=== PATIENT | male | born 1945 | race Caucasian/White ===

== ENCOUNTER 2017-10-14 12:01 | Inpatient (IN) | payer MEDICARE ==
[2017-10-14 13:19] LABS: BASO # 0.1 K/uL (0.0-0.2); BASO % 0.9 % (0.0-2.0); EOS # 0.1 K/uL (0.0-0.7); EOS % 0.9 % (0.0-4.0); HEMOGLOBIN 11.5 g/dL (12.0-18.0); LYMPH # 1.1 K/uL (1.0-4.3); LYMPH % 9.7 % (20.0-40.0); MEAN CELL VOLUME 81.1 fL (80.0-94.0); MEAN CORPUSCULAR HEMOGLOBIN 26.9 pg (27.0-31.0); MEAN CORPUSCULAR HGB CONC 33.2 g/dL (33.0-37.0); MEAN PLATELET VOLUME 10.1 fL (7.2-11.7); MONO # 0.9 K/uL (0.0-0.8); MONO % 8.4 % (0.0-10.0); NEUT % 80.1 % (50.0-75.0); PLATELET COUNT 267 K/uL (130-400); RBC 4.28 Mil/uL (4.40-5.90); RED CELL DISTRIBUTION WIDTH 16.5 % (11.5-14.5); WHITE BLOOD COUNT 11.2 K/uL (4.8-10.8)
--- NOTE | 2017-10-14 13:19 | C.PDOC ---
History Of Present Illness 72 y/o male with PMHx of HTN and DM presents to ED with complaints of dysuria for "last few days"and bilateral flank pain. Patient denies fever, chills, abdominal pain, nausea, vomiting or any other complaints at this time. Time Seen by Provider: 10/14/17 12:58 Chief Complaint (Nursing): Male Genitourinary History Per: Patient History/Exam Limitations: no limitations Onset/Duration Of Symptoms: Days Past Medical History Reviewed: Historical Data, Nursing Documentation, Vital Signs Vital Signs: Last Vital Signs Temp 97.7 F 10/14/17 12:11 Pulse 75 10/14/17 17:31 Resp 20 10/14/17 17:31 BP 158/43 H 10/14/17 17:31 Pulse Ox 100 10/14/17 17:31 - Medical History PMH: COPD, HTN Surgical History: No Surg Hx Family History: States: No Known Family Hx - Social History Hx Alcohol Use: Yes Hx Substance Use: No - Immunization History Hx Tetanus Toxoid Vaccination: No Hx Influenza Vaccination: Yes Hx Pneumococcal Vaccination: Yes Review Of Systems Constitutional: Negative for: Fever, Chills Gastrointestinal: Negative for: Nausea, Vomiting Genitourinary: Positive for: Dysuria Musculoskeletal: Positive for: Other (flank pain). Negative for: Back Pain Skin: Negative for: Rash Neurological: Negative for: Weakness, Numbness Physical Exam - Physical Exam Appears: Non-toxic, No Acute Distress Skin: Normal Color, Warm, Dry, No Rash Head: Atraumatic, Normacephalic Oral Mucosa: Moist Neck: Normal ROM, Supple Cardiovascular: Rhythm Regular Respiratory: Normal Breath Sounds, No Rales, No Rhonchi, No Wheezing Gastrointestinal/Abdominal: Tenderness (Suprapubic), No Guarding, No Rebound, Other (bilateral flank tenderness) Back: No CVA Tenderness Extremity: Normal ROM, Capillary Refill (<2 seconds) Neurological/Psych: Oriented x3 ED Course And Treatment - Laboratory Results Result Diagrams: 10/14/17 13:15 10/14/17 14:05 ECG: Interpreted By Me, Viewed By Me ECG Rhythm: Sinus Rhythm, R BBB Rate From EC (BPM) O2 Sat by Pulse Oximetry: 96 (RA) Pulse Ox Interpretation: Normal Disposition - Disposition Disposition: HOSPITALIZED Disposition Time: 17:47 Condition: STABLE - Clinical Impression Clinical Impression: Acute renal failure, Obstructive uropathy - Scribe Statement The provider has reviewed the documentation as recorded by the Dashaibjose angel Hilliard All medical record entries made by the Kole were at my direction and personally dictated by me. I have reviewed the chart and agree that the record accurately reflects my personal performance of the history, physical exam, medical decision making, and the department course for this patient. I have also personally directed, reviewed, and agree with the discharge instructions and disposition.
[2017-10-14 13:29] LABS: INR 1.2; PROTHROMBIN TIME 13.7 SECONDS (9.7-12.2)
[2017-10-14 13:35] LABS: ANISOCYTOSIS SLIGHT; BASOPHIL 2 % (0-2); HYPOCHROMIC SLIGHT; LYMPHOCYTE 10 % (20-40); MONOCYTE 8 % (0-10); NEUTROPHIL 80 % (50-75); PLATELET ESTIMATE NORMAL (NORMAL); POIKILOCYTOSIS SLIGHT; TOTAL CELLS COUNTED 100
[2017-10-14 13:43] LABS: ALB/GLOB RATIO 0.9 (1.0-2.1); ALBUMIN 3.8 g/dL (3.5-5.0); CALCIUM 8.2 mg/dl (8.6-10.4)
[2017-10-14 13:58] LABS: SQUAMOUS EPITHIAL 11 /hpf (0-5); URINE BACTERIA FEW (<OCC); URINE BILIRUBIN NEGATIVE (NEGATIVE); URINE BLOOD 3+ (NEGATIVE); URINE CLARITY Turbid (Clear); URINE COLOR Amber (YELLOW); URINE GLUCOSE (UA) NORMAL (Normal); URINE LEUKOCYTE ESTERASE 2+ Leu/uL (Negative); URINE NITRATE NEGATIVE (NEGATIVE); URINE PROTEIN 1+ mg/dL (NEGATIVE); URINE UROBILINOGEN NORMAL mg/dL (0.2-1.0)
--- NOTE | 2017-10-14 14:45 | CT ---
PROCEDURE: CT Abdomen and Pelvis without intravenous contrast HISTORY: flank pain COMPARISON: None. TECHNIQUE: Technique. Contrast Dose: Radiation dose: Total exam DLP = 1464 mGy-cm. This CT exam was performed using one or more of the following dose reduction techniques: Automated exposure control, adjustment of the mA and/or kV according to patient size, and/or use of iterative reconstruction technique. FINDINGS: LOWER THORAX: Left pleural effusion. Left perifissural bronchiectasis with joss bronchiectatic thickening surrounding inflammatory changes -contiguous the left lateral pleural surfaces. Small pericardial effusion LIVER: Prominent left hepatic lobe wrapping around the spleen. GALLBLADDER AND BILE DUCTS: Unremarkable. PANCREAS: No mass. Mostly fatty infiltration. No gross lesion or ductal dilatation. SPLEEN: Unremarkable. ADRENALS: Unremarkable. No mass. KIDNEYS AND URETERS: Bilateral hydronephrosis. Intra and extra renal pelviectasis greater than peripheral caliectasis. A bilateral ureteropelvic junction obstruction left greater than right is suspect. No obstructing calculus appreciated. Markedly distended bladder also inferred contributory to the bilateral hydronephrosis . The calculi present appear bilaterally vascular related. Left perirenal fluid ; left perirenal fat inflammatory and fluid changes -contiguous/ blending the left psoas margin. Midpole right renal cortical hypodensity/ nonspecific cystic appearing mass suggested VASCULATURE: Atherosclerotic vascular calcifications. No aortic aneurysm. BOWEL: Moderate stool retention. No obstruction. No gross mural thickening. Probable scattered diverticuli. No gross complicating diverticulitis APPENDIX: Unremarkable. Normal appendix. PERITONEUM: Unremarkable. No free fluid. No free air. LYMPH NODES: Unremarkable. No enlarged lymph nodes. BLADDER: Markedly distended bladder appear consistent with bladder outlet obstruction -likely contributing to the bilateral hydronephrosis is well. No intraluminal bladder mass is noted. The prostate moderately prominent measuring at least 5 cm REPRODUCTIVE: Enlarged prostate. Unremarkable seminal vesicles BONES: No acute fracture. Thoraco lumbar spondylosis with the endplate sclerotic changes, vacuum disc phenomena and tiny subchondral endplate cystic changes OTHER FINDINGS: Anterior abdominal wall postsurgical changes. Fat containing ventral hernia. No bowel containing hernia IMPRESSION: Markedly distended bladder measuring at least 20 cm cephalo caudal -bladder fundus up to the L3-4 disc space. Bladder outlet obstruction inferred- prostate enlarged. Bilateral hydronephrosis and hydro proximal ureters O concomitant obstructing ureteral calculi. Secondary bilateral hydronephrosis from the outlet obstruction compatible with this. An element of concomitant bilateral pelvic a ureteral junctional obstruction not excluded. Left perirenal inflammatory changes -contiguous with the left psoas margin Right midpole renal hypodense mass -nonspecific. Consider elective renal ultrasound follow-up Small pericardial effusion. Left lung base findings as above Comments: The bladder distension/bladder outlet obstruction and the secondary bilateral hydronephrosis - without obstructing calculus conveyed to the ER physician Dr. Ibarra 2:25 p.m. on 10/14/2017 =
[2017-10-14] MEDS: Sodium Chloride 0.9% 1,000 ML IV SCH (15:17)
[2017-10-14] MEDS ORDERED: Sodium Chloride 0.9% 1,000 ML ONE (15:21)
--- NOTE | 2017-10-14 15:40 | CP.PCM.HP ---
History of Present Illness - History of Present Illness History of Present Illness: 72 y/o male with PMHx of HTN and DM presents to ED with complaints of dysuria for "last few days"and bilateral flank pain. Patient denies fever, chills, abdominal pain, nausea, vomiting or any other complaints at this time. Masterson placed in ED drained over 2 L of urine. Patient has elevated creatinine and bilateral hydronephrosis Present on Admission - Present on Admission Any Indicators Present on Admission: No History of DVT/PE: No History of Uncontrolled Diabetes: No Urinary Catheter: No Decubitus Ulcer Present: No Review of Systems - Review of Systems All systems: reviewed and no additional remarkable complaints except (As mentioned in HPI) Past Patient History - Infectious Disease Hx of Infectious Diseases: None - Past Social History Smoking Status: Heavy Smoker > 10 Cigarettes Daily - CARDIAC Hx Hypertension: Yes - PULMONARY Hx Chronic Obstructive Pulmonary Disease (COPD): Yes - ENDOCRINE/METABOLIC Hx Diabetes Mellitus Type 1: Yes - PSYCHIATRIC Hx Substance Use: No - SURGICAL HISTORY Hx Surgeries: Yes Hx Amputation: Yes Hx Herniorrhaphy: Yes - ANESTHESIA Hx Anesthesia: Yes Hx Anesthesia Reactions: No Meds Allergies/Adverse Reactions: Allergies Allergy/AdvReac Type Severity Reaction Status Date / Time No Known Allergies Allergy Unverified 10/14/17 13:01 Physical Exam - Head Exam Head Exam: NORMAL INSPECTION - Eye Exam Eye Exam: Normal appearance - ENT Exam ENT Exam: Mucous Membranes Moist - Respiratory Exam Respiratory Exam: Clear to Auscultation Bilateral, NORMAL BREATHING PATTERN - Cardiovascular Exam Cardiovascular Exam: REGULAR RHYTHM, +S1, +S2 - GI/Abdominal Exam GI & Abdominal Exam: Normal Bowel Sounds, Soft - Extremities Exam Extremities exam: Positive for: normal inspection Results - Vital Signs Recent Vital Signs: Last Vital Signs Temp 97.7 F 10/14/17 12:11 Pulse 81 10/14/17 14:19 Resp 16 10/14/17 14:19 BP 126/70 10/14/17 14:19 Pulse Ox 96 10/14/17 14:38 - Labs Result Diagrams: 10/19/17 08:50 10/21/17 07:10 Labs: Laboratory Results - last 24 hr 10/14/17 10/14/17 10/14/17 13:15 13:15 13:15 WBC 11.2 H RBC 4.28 L Hgb 11.5 L Hct 34.7 L MCV 81.1 MCH 26.9 L MCHC 33.2 RDW 16.5 H Plt Count 267 MPV 10.1 Neut % (Auto) 80.1 H Lymph % (Auto) 9.7 L [place] % (Auto) 8.4 Eos % (Auto) 0.9 Baso % (Auto) 0.9 Neut # 9.0 H Lymph # 1.1 [place] # 0.9 H Eos # 0.1 Baso # 0.1 Neutrophils % (Manual) 80 H Lymphocytes % (Manual) 10 L Monocytes % (Manual) 8 Basophils % (Manual) 2 Platelet Estimate Normal Hypochromasia (manual) Slight Poikilocytosis (manual Slight Anisocytosis (manual) Slight PT 13.7 H INR 1.2 APTT 34 Sodium 128 L Potassium 6.0 H Chloride 97 L Carbon Dioxide 16 L Anion Gap 21 H BUN 113 H* Creatinine 9.2 H* Est GFR ( Amer) 7 Est GFR (Non-Af Amer) 6 Random Glucose 159 H Calcium 8.2 L Total Bilirubin 1.1 AST 58 ALT 49 Alkaline Phosphatase 80 Total Protein 8.0 Albumin 3.8 Globulin 4.1 H Albumin/Globulin Ratio 0.9 L Lipase 48 Urine Color Urine Clarity Urine pH Ur Specific [place] Urine Protein Urine Glucose (UA) Urine Ketones Urine Blood Urine Nitrate Urine Bilirubin Urine Urobilinogen Ur Leukocyte Esterase Urine WBC (Auto) Urine RBC (Auto) Ur Squamous Epith Cells Urine Bacteria Hyaline Casts 10/14/17 10/14/17 13:32 14:05 WBC RBC Hgb Hct MCV MCH MCHC RDW Plt Count MPV Neut % (Auto) Lymph % (Auto) [place] % (Auto) Eos % (Auto) Baso % (Auto) Neut # Lymph # [place] # Eos # Baso # Neutrophils % (Manual) Lymphocytes % (Manual) Monocytes % (Manual) Basophils % (Manual) Platelet Estimate Hypochromasia (manual) Poikilocytosis (manual Anisocytosis (manual) PT INR APTT Sodium Potassium 4.4 Chloride Carbon Dioxide Anion Gap BUN Creatinine Est GFR ( Amer) Est GFR (Non-Af Amer) Random Glucose Calcium Total Bilirubin AST ALT Alkaline Phosphatase Total Protein Albumin Globulin Albumin/Globulin Ratio Lipase Urine Color Gini Urine Clarity Turbid Urine pH 5.0 Ur Specific [place] 1.013 Urine Protein 1+ H Urine Glucose (UA) Normal Urine Ketones Negative Urine Blood 3+ H Urine Nitrate Negative Urine Bilirubin Negative Urine Urobilinogen Normal Ur Leukocyte Esterase 2+ H Urine WBC (Auto) 907 H Urine RBC (Auto) 287 H Ur Squamous Epith Cells 11 H Urine Bacteria Few H Hyaline Casts 6-10 H Assessment & Plan - Assessment and Plan (Free Text) Assessment: KIMBERLY with hydronephrosis Bladder Outlet obstruction COPD DM Possible BPH RBBB Nephrology consult Urology consult Follow creatinine's Start Flomax Monitor urine output Follow CBC Accucheck Insulin coverage Follow electrolytes DVT/GI prophalaxis
--- NOTE | 2017-10-14 16:45 | CP.PCM.CON ---
History of Present Illness - History of Present Illness History of Present Illness: Initial Nephrology Consultation: Assessment: Stable Acute Kidney Injury (N17.9) likely due to bladder outlet obstruction with b/l hydronephrosis Active smoker Hyponatremia, acidosis, anemia possible UTI Plan No acute need for renal replacement therapy at this time. anticipat renal recovery since obstruction relieved. Hypertension control with meds as ordered. No ACEI/ARB due to KIMBERLY Monitor Input/Output, daily weights and renal function with basic metabolic panel continue with IVF as ordered started flomax consider urology eval Dose meds/antibiotics for reduced GFR. Avoid fleets enema/magnesium based laxatives. Avoid nephrotoxins/NSAIDs/ iodinated contrast (unless needed emergently) Glycemic control Further work up/management as per primary team pt advised to stop smoking Thanks for allowing me to participate in care of your patient. Will follow patient with you. Please call if any Qs. d/w team and family Dr Kieran Espinosa Office: [phone] Chief Complaint; unable to urinate HPI: Pt is a 72 M without much medical hx but active smoker presented with complaints of unable to urinate for 1 week. he had nocturia prior to that but he denies other symptoms of LUTS he was found to have urine retention and womack catheter drained ~ 2 L urine soon after. Denies OTC/herbal meds or NSAIDs No recent iodinated contrast exposure. No obvious episodes of low BP. ROS: Cardiovascular: No chest pain. Pulmonary: No shortness of breath Gastrointestinal: denies abdominal pain No nausea. No vomiting. Genitourinary: unable to urinate. All other negative Physical Examination: General Appearance: Comfortable, in no acute respiratory distress, co-operative . Vitals reviewed and noted as below Head; Atraumatic, normocephalic ENT: no ulcers no thrush. Tongue is midline. Oropharynx: no rash or ulcers. EYES: Pupils are equal, round and reactive to light accommodation. Eye muscles and extraocular movement intact. Sclera is anicteric. Neck; supple no lymphadenopathy, no thyromegaly or bruit Lungs: Normal respiratory rate/effort. Breath sounds bilateral equal and clear Heart: Normal rate. s1s2 normal. No rub or gallop. Extremities: no edema. No varicose veins Neurological: Patient is alert, awake and oriented to person, place and time. No focal deficit. Strength bilateral appropriate and equal Skin: Warm and dry. Normal turgor. No rash. Palpitation: Normal elasticity for age Abdomen: Abdomen is soft. Bowel sounds +. There is no abdominal tenderness, no guarding/rigidity no organomegaly Psych: normal insight and normal affect/mood MSK: no joint tenderness or swelling. Digits and nails normal, no deformity : kidney or bladder not palpable. has womack. some blood at tip of penis + Labs/imaging reviewed. Past medical history, past surgical history, family history, social history, allergy reviewed and noted as below Family hx: no hx of CKD. Rest non-contributory Past Patient History - Infectious Disease Hx of Infectious Diseases: None - Past Social History Smoking Status: Heavy Smoker > 10 Cigarettes Daily - CARDIAC Hx Hypertension: Yes - PULMONARY Hx Chronic Obstructive Pulmonary Disease (COPD): Yes - ENDOCRINE/METABOLIC Hx Diabetes Mellitus Type 1: Yes - PSYCHIATRIC Hx Substance Use: No - SURGICAL HISTORY Hx Surgeries: Yes Hx Amputation: Yes Hx Herniorrhaphy: Yes - ANESTHESIA Hx Anesthesia: Yes Hx Anesthesia Reactions: No Meds Allergies/Adverse Reactions: Allergies Allergy/AdvReac Type Severity Reaction Status Date / Time No Known Allergies Allergy Unverified 10/14/17 13:01 - Medications Medications: Current Medications Sodium Chloride (Sodium Chloride 0.9%) 1,000 mls @ 100 mls/hr IV .Q10H [facility] Last Admin: 10/14/17 15:17 Dose: 100 mls/hr Tamsulosin HCl (Flomax) 0.4 mg PO DAILY [facility] Results - Vital Signs Recent Vital Signs: Last Vital Signs Temp 97.7 F 10/14/17 12:11 Pulse 81 10/14/17 14:19 Resp 16 10/14/17 14:19 BP 126/70 10/14/17 14:19 Pulse Ox 96 10/14/17 14:38 - Labs Result Diagrams: 10/14/17 13:15 10/14/17 14:05 Labs: Laboratory Results - last 24 hr 10/14/17 10/14/17 10/14/17 13:15 13:15 13:15 WBC 11.2 H RBC 4.28 L Hgb 11.5 L Hct 34.7 L MCV 81.1 MCH 26.9 L MCHC 33.2 RDW 16.5 H Plt Count 267 MPV 10.1 Neut % (Auto) 80.1 H Lymph % (Auto) 9.7 L [place] % (Auto) 8.4 Eos % (Auto) 0.9 Baso % (Auto) 0.9 Neut # 9.0 H Lymph # 1.1 [place] # 0.9 H Eos # 0.1 Baso # 0.1 Neutrophils % (Manual) 80 H Lymphocytes % (Manual) 10 L Monocytes % (Manual) 8 Basophils % (Manual) 2 Platelet Estimate Normal Hypochromasia (manual) Slight Poikilocytosis (manual Slight Anisocytosis (manual) Slight PT 13.7 H INR 1.2 APTT 34 Sodium 128 L Potassium 6.0 H Chloride 97 L Carbon Dioxide 16 L Anion Gap 21 H BUN 113 H* Creatinine 9.2 H* Est GFR ( Amer) 7 Est GFR (Non-Af Amer) 6 Random Glucose 159 H Calcium 8.2 L Total Bilirubin 1.1 AST 58 ALT 49 Alkaline Phosphatase 80 Total Protein 8.0 Albumin 3.8 Globulin 4.1 H Albumin/Globulin Ratio 0.9 L Lipase 48 Urine Color Urine Clarity Urine pH Ur Specific [place] Urine Protein Urine Glucose (UA) Urine Ketones Urine Blood Urine Nitrate Urine Bilirubin Urine Urobilinogen Ur Leukocyte Esterase Urine WBC (Auto) Urine RBC (Auto) Ur Squamous Epith Cells Urine Bacteria Hyaline Casts 10/14/17 10/14/17 13:32 14:05 WBC RBC Hgb Hct MCV MCH MCHC RDW Plt Count MPV Neut % (Auto) Lymph % (Auto) [place] % (Auto) Eos % (Auto) Baso % (Auto) Neut # Lymph # [place] # Eos # Baso # Neutrophils % (Manual) Lymphocytes % (Manual) Monocytes % (Manual) Basophils % (Manual) Platelet Estimate Hypochromasia (manual) Poikilocytosis (manual Anisocytosis (manual) PT INR APTT Sodium Potassium 4.4 Chloride Carbon Dioxide Anion Gap BUN Creatinine Est GFR ( Amer) Est GFR (Non-Af Amer) Random Glucose Calcium Total Bilirubin AST ALT Alkaline Phosphatase Total Protein Albumin Globulin Albumin/Globulin Ratio Lipase Urine Color Gini Urine Clarity Turbid Urine pH 5.0 Ur Specific [place] 1.013 Urine Protein 1+ H Urine Glucose (UA) Normal Urine Ketones Negative Urine Blood 3+ H Urine Nitrate Negative Urine Bilirubin Negative Urine Urobilinogen Normal Ur Leukocyte Esterase 2+ H Urine WBC (Auto) 907 H Urine RBC (Auto) 287 H Ur Squamous Epith Cells 11 H Urine Bacteria Few H Hyaline Casts 6-10 H
[2017-10-15] MEDS: Sodium Chloride 0.9% 1,000 ML IV SCH ×3 (01:02→21:31)
[2017-10-15] MEDS: (Novolog) Insulin Aspart, Recombinant 100 u/ml 10 ml vial SC SCH ×4 (08:22→21:32)
[2017-10-15 08:25] LABS: BASO # 0.1 K/uL (0.0-0.2); BASO % 0.7 % (0.0-2.0); EOS # 0.1 K/uL (0.0-0.7); HEMOGLOBIN 10.9 g/dL (12.0-18.0); LYMPH # 1.6 K/uL (1.0-4.3); LYMPH % 21.4 % (20.0-40.0); MEAN CELL VOLUME 80.9 fL (80.0-94.0); MEAN CORPUSCULAR HEMOGLOBIN 27.3 pg (27.0-31.0); MEAN CORPUSCULAR HGB CONC 33.7 g/dL (33.0-37.0); MEAN PLATELET VOLUME 9.8 fL (7.2-11.7); MONO # 0.7 K/uL (0.0-0.8); MONO % 9.8 % (0.0-10.0); NEUT # 4.9 K/uL (1.8-7.0); NEUT % 66.1 % (50.0-75.0); RBC 3.99 Mil/uL (4.40-5.90); RED CELL DISTRIBUTION WIDTH 16.4 % (11.5-14.5); WHITE BLOOD COUNT 7.3 K/uL (4.8-10.8)
[2017-10-15 09:09] LABS: CALCIUM 8.2 mg/dl (8.6-10.4); MAGNESIUM 2.5 mg/dL (1.6-2.3)
--- NOTE | 2017-10-15 11:54 | CP.PCM.PN ---
Subjective - Date & Time of Evaluation Date of Evaluation: 10/15/17 Time of Evaluation: 11:51 - Subjective Subjective: Patient embedded feeling much better appetite is good No nausea or vomiting Patient has Masterson catheter full of urine in bag tinged blood Objective - Vital Signs/Intake and Output Vital Signs (last 24 hours): Temp Pulse Resp BP Pulse Ox 97.7 F 76 20 150/74 95 10/15/17 07:15 10/15/17 07:15 10/15/17 07:15 10/15/17 07:15 10/14/17 23:35 Intake and Output: 10/15/17 10/15/17 06:59 18:59 Output Total 1850 Balance -1850 - Medications Medications: Current Medications Acetaminophen (Tylenol 325mg Tab) 650 mg PO Q6 PRN PRN Reason: Pain, moderate (4-7) Last Admin: 10/14/17 22:27 Dose: 650 mg Heparin Sodium (Porcine) (Heparin) 5,000 units SC Q8 [facility] Last Admin: 10/15/17 05:57 Dose: 5,000 units Sodium Chloride (Sodium Chloride 0.9%) 1,000 mls @ 100 mls/hr IV .Q10H [facility] Last Admin: 10/15/17 10:49 Dose: 100 mls/hr Insulin Aspart (Novolog) 0 unit SC ACHS [facility] PRN Reason: Protocol Last Admin: 10/15/17 08:22 Dose: 2 unit Tamsulosin HCl (Flomax) 0.4 mg PO DAILY [facility] Last Admin: 10/15/17 10:49 Dose: 0.4 mg - Labs Labs: 10/15/17 08:17 10/15/17 08:17 PT 13.7 SECONDS (9.7-12.2) H 10/14/17 13:15 INR 1.2 10/14/17 13:15 APTT 34 SECONDS (21-34) 10/14/17 13:15 - Constitutional Appears: No Acute Distress - ENT Exam ENT Exam: Mucous Membranes Moist - Neck Exam Neck Exam: absent: Lymphadenopathy - Respiratory Exam Respiratory Exam: NORMAL BREATHING PATTERN. absent: Chest Wall Tenderness, Rhonchi, Wheezes - Cardiovascular Exam Cardiovascular Exam: absent: Gallop, JVD, Rubs - GI/Abdominal Exam GI & Abdominal Exam: Soft, Normal Bowel Sounds. absent: Guarding - Extremities Exam Extremities Exam: absent: Calf Tenderness - Back Exam Back Exam: absent: CVA tenderness (L), CVA tenderness (R) - Neurological Exam Neurological Exam: Alert - Psychiatric Exam Psychiatric exam: Normal Affect - Skin Skin Exam: absent: Cyanosis Assessment and Plan (1) Acute renal failure Assessment & Plan: Patient has acute kidney injury from obstructive uropathy. Which has been improving serum creatinine coming down and patient making a lot of urine. #2 bilateral hydronephrosis Patient needs urology consult Continue monitoring electrolyte intake and output Serum phosphorus slightly elevated that would be corrected once his kidney function improving. Status: Acute (2) Obstructive uropathy Status: Acute
--- NOTE | 2017-10-15 12:04 | CP.PCM.PN ---
Subjective - Date & Time of Evaluation Date of Evaluation: 10/15/17 Time of Evaluation: 12:04 - Subjective Subjective: Patient seen and examined Improving creatinine Objective - Vital Signs/Intake and Output Vital Signs (last 24 hours): Temp Pulse Resp BP Pulse Ox 97.7 F 76 20 150/74 95 10/15/17 07:15 10/15/17 07:15 10/15/17 07:15 10/15/17 07:15 10/14/17 23:35 Intake and Output: 10/15/17 10/15/17 06:59 18:59 Output Total 1850 Balance -1850 - Medications Medications: Current Medications Acetaminophen (Tylenol 325mg Tab) 650 mg PO Q6 PRN PRN Reason: Pain, moderate (4-7) Last Admin: 10/14/17 22:27 Dose: 650 mg Heparin Sodium (Porcine) (Heparin) 5,000 units SC Q8 [facility] Last Admin: 10/15/17 05:57 Dose: 5,000 units Sodium Chloride (Sodium Chloride 0.9%) 1,000 mls @ 100 mls/hr IV .Q10H [facility] Last Admin: 10/15/17 10:49 Dose: 100 mls/hr Insulin Aspart (Novolog) 0 unit SC ACHS [facility] PRN Reason: Protocol Last Admin: 10/15/17 08:22 Dose: 2 unit Tamsulosin HCl (Flomax) 0.4 mg PO DAILY [facility] Last Admin: 10/15/17 10:49 Dose: 0.4 mg - Labs Labs: 10/15/17 08:17 10/15/17 08:17 PT 13.7 SECONDS (9.7-12.2) H 10/14/17 13:15 INR 1.2 10/14/17 13:15 APTT 34 SECONDS (21-34) 10/14/17 13:15 - Head Exam Head Exam: NORMAL INSPECTION - Eye Exam Eye Exam: Normal appearance - ENT Exam ENT Exam: Mucous Membranes Moist - Respiratory Exam Respiratory Exam: Clear to Ausculation Bilateral, NORMAL BREATHING PATTERN - Cardiovascular Exam Cardiovascular Exam: REGULAR RHYTHM, +S1, +S2 - GI/Abdominal Exam GI & Abdominal Exam: Soft, Normal Bowel Sounds - Extremities Exam Extremities Exam: Normal Inspection Assessment and Plan - Assessment and Plan (Free Text) Assessment: KIMBERLY with hydronephrosis - improving Bladder Outlet obstruction COPD DM Possible BPH Hematuria Nephrology consult appreciated Urology consult Follow creatinine's Flomax Monitor urine output Follow CBC Accucheck Insulin coverage Follow electrolytes DVT/GI prophalaxis
[2017-10-16] MEDS: (Novolog) Insulin Aspart, Recombinant 100 u/ml 10 ml vial SC SCH ×4 (08:00→21:17)
--- NOTE | 2017-10-16 08:10 | CP.PCM.PN ---
Subjective - Date & Time of Evaluation Date of Evaluation: 10/16/17 Time of Evaluation: 08:08 - Subjective Subjective: Patient awake and conscious No nausea no vomiting Patient feeling better Objective - Vital Signs/Intake and Output Vital Signs (last 24 hours): Temp Pulse Resp BP Pulse Ox 97.8 F 85 20 133/68 96 10/16/17 04:18 10/16/17 04:18 10/16/17 04:18 10/16/17 04:18 10/15/17 23:50 Intake and Output: 10/16/17 10/16/17 06:59 18:59 Intake Total 1300 Output Total 2150 Balance -850 - Medications Medications: Current Medications Acetaminophen (Tylenol 325mg Tab) 650 mg PO Q6 PRN PRN Reason: Pain, moderate (4-7) Last Admin: 10/14/17 22:27 Dose: 650 mg Heparin Sodium (Porcine) (Heparin) 5,000 units SC Q8 [facility] Last Admin: 10/16/17 05:49 Dose: 5,000 units Sodium Chloride (Sodium Chloride 0.9%) 1,000 mls @ 100 mls/hr IV .Q10H [facility] Last Admin: 10/15/17 21:31 Dose: 100 mls/hr Insulin Aspart (Novolog) 0 unit SC ACHS [facility] PRN Reason: Protocol Last Admin: 10/15/17 21:32 Dose: Not Given Tamsulosin HCl (Flomax) 0.4 mg PO DAILY [facility] Last Admin: 10/15/17 10:49 Dose: 0.4 mg - Labs Labs: 10/15/17 08:17 10/15/17 08:17 PT 13.7 SECONDS (9.7-12.2) H 10/14/17 13:15 INR 1.2 10/14/17 13:15 APTT 34 SECONDS (21-34) 10/14/17 13:15 - Constitutional Appears: No Acute Distress - ENT Exam ENT Exam: Mucous Membranes Moist - Respiratory Exam Respiratory Exam: absent: Chest Wall Tenderness - Cardiovascular Exam Cardiovascular Exam: absent: JVD, Rubs - GI/Abdominal Exam GI & Abdominal Exam: Soft, Normal Bowel Sounds - Extremities Exam Extremities Exam: absent: Calf Tenderness - Back Exam Back Exam: absent: CVA tenderness (L), CVA tenderness (R) - Neurological Exam Neurological Exam: Alert - Psychiatric Exam Psychiatric exam: Normal Affect - Skin Skin Exam: absent: Cyanosis Assessment and Plan (1) Acute renal failure Assessment & Plan: Acute kidney injury related to obstructive uropathy. BMP from this morning still pending Urine output noted to be good Bilateral hydronephrosis PSA pending Follow-up with urology Status: Acute (2) Obstructive uropathy Status: Acute
[2017-10-16] MEDS: Sodium Chloride 0.9% 1,000 ML IV SCH ×3 (08:34→22:33)
--- NOTE | 2017-10-16 13:13 | CP.PCM.PN ---
Subjective - Date & Time of Evaluation Date of Evaluation: 10/16/17 Time of Evaluation: 11:35 - Subjective Subjective: Patient seen today, denies any chest pain, sob, abdominal pain, Womack draining well Objective - Vital Signs/Intake and Output Vital Signs (last 24 hours): Temp Pulse Resp BP Pulse Ox 98.2 F 86 18 143/69 95 10/16/17 07:35 10/16/17 08:00 10/16/17 07:35 10/16/17 07:35 10/16/17 07:35 Intake and Output: 10/16/17 10/16/17 06:59 18:59 Intake Total 1300 Output Total 2150 Balance -850 - Medications Medications: Current Medications Acetaminophen (Tylenol 325mg Tab) 650 mg PO Q6 PRN PRN Reason: Pain, moderate (4-7) Last Admin: 10/14/17 22:27 Dose: 650 mg Heparin Sodium (Porcine) (Heparin) 5,000 units SC Q8 [facility] Last Admin: 10/16/17 05:49 Dose: 5,000 units Sodium Chloride (Sodium Chloride 0.9%) 1,000 mls @ 100 mls/hr IV .Q10H [facility] Last Admin: 10/16/17 08:34 Dose: 100 mls/hr Insulin Aspart (Novolog) 0 unit SC ACHS [facility] PRN Reason: Protocol Last Admin: 10/16/17 12:33 Dose: 2 unit Tamsulosin HCl (Flomax) 0.4 mg PO DAILY [facility] Last Admin: 10/16/17 09:31 Dose: 0.4 mg - Labs Labs: 10/15/17 08:17 10/15/17 08:17 PT 13.7 SECONDS (9.7-12.2) H 10/14/17 13:15 INR 1.2 10/14/17 13:15 APTT 34 SECONDS (21-34) 10/14/17 13:15 Assessment and Plan - Assessment and Plan (Free Text) Assessment: A/P 72 year old male admitted for Acute Kidney Injury due to bladder outlet obstruction with b/l hydronephrosis cr- improving -4<9.2 Dr. Crawford consulted for hydronephrosis and obstruction, recommends to continue with womack cath. and repeat US bladder tomorrow and will see patient
[2017-10-16 14:10] LABS: BLOOD UREA NITROGEN 30 mg/dL (9-20); CALCIUM 7.8 mg/dl (8.6-10.4); GFR AFRICAN-AMERICAN > 60; GFR NON-AFRICAN AMERICAN 50
--- NOTE | 2017-10-16 21:30 | CP.PCM.PN ---
Subjective - Date & Time of Evaluation Date of Evaluation: 10/16/17 Time of Evaluation: 21:30 - Subjective Subjective: Patient seen and examined No events overnight Creatinine continues to improve Objective - Vital Signs/Intake and Output Vital Signs (last 24 hours): Temp Pulse Resp BP Pulse Ox 98.2 F 75 20 129/72 94 L 10/16/17 15:08 10/16/17 16:00 10/16/17 15:08 10/16/17 15:08 10/16/17 15:08 Intake and Output: 10/16/17 10/17/17 18:59 06:59 Intake Total 1300 Output Total 1400 Balance -100 - Medications Medications: Current Medications Acetaminophen (Tylenol 325mg Tab) 650 mg PO Q6 PRN PRN Reason: Pain, moderate (4-7) Last Admin: 10/14/17 22:27 Dose: 650 mg Heparin Sodium (Porcine) (Heparin) 5,000 units SC Q8 [facility] Last Admin: 10/16/17 13:28 Dose: 5,000 units Sodium Chloride (Sodium Chloride 0.9%) 1,000 mls @ 50 mls/hr IV .Q20H [facility] Last Admin: 10/16/17 15:47 Dose: 50 mls/hr Insulin Aspart (Novolog) 0 unit SC ACHS [facility] PRN Reason: Protocol Last Admin: 10/16/17 21:17 Dose: Not Given Tamsulosin HCl (Flomax) 0.4 mg PO DAILY [facility] Last Admin: 10/16/17 09:31 Dose: 0.4 mg - Labs Labs: 10/15/17 08:17 10/16/17 13:37 PT 13.7 SECONDS (9.7-12.2) H 10/14/17 13:15 INR 1.2 10/14/17 13:15 APTT 34 SECONDS (21-34) 10/14/17 13:15 - Head Exam Head Exam: NORMAL INSPECTION - Eye Exam Eye Exam: Normal appearance - ENT Exam ENT Exam: Mucous Membranes Moist - Respiratory Exam Respiratory Exam: Clear to Ausculation Bilateral - Cardiovascular Exam Cardiovascular Exam: REGULAR RHYTHM, +S1, +S2 - GI/Abdominal Exam GI & Abdominal Exam: Soft, Normal Bowel Sounds - Extremities Exam Extremities Exam: Normal Inspection Assessment and Plan - Assessment and Plan (Free Text) Assessment: KIMBERLY with hydronephrosis - Improving Bladder Outlet obstruction COPD DM Possible BPH Hematuria - Improving Urology consult Follow creatinine's Flomax Monitor I's and O's Accucheck Insulin coverage Follow electrolytes DVT/GI prophalaxis
--- NOTE | 2017-10-17 07:10 | CARD ---
APPROVED REPORT EKG Measurement Heart [id number] NC 182P [id number] <Conclusion> Normal sinus rhythm Right bundle branch block Abnormal ECG
[2017-10-17] MEDS: (Novolog) Insulin Aspart, Recombinant 100 u/ml 10 ml vial SC SCH ×4 (08:26→21:37)
[2017-10-17 08:35] LABS: BLOOD UREA NITROGEN 23 mg/dL (9-20); CALCIUM 8.1 mg/dl (8.6-10.4); GFR AFRICAN-AMERICAN > 60; GFR NON-AFRICAN AMERICAN 60
--- NOTE | 2017-10-17 10:41 | CP.PCM.PN ---
Subjective - Date & Time of Evaluation Date of Evaluation: 10/17/17 Time of Evaluation: 10:41 - Subjective Subjective: Patient seen and examined No events overnight Objective - Vital Signs/Intake and Output Vital Signs (last 24 hours): Temp Pulse Resp BP Pulse Ox 98.0 F 88 18 158/51 H 96 10/17/17 07:40 10/17/17 07:40 10/17/17 07:40 10/17/17 07:40 10/17/17 07:40 Intake and Output: 10/17/17 10/17/17 06:59 18:59 Intake Total 400 Output Total 1800 Balance -1400 - Medications Medications: Current Medications Acetaminophen (Tylenol 325mg Tab) 650 mg PO Q6 PRN PRN Reason: Pain, moderate (4-7) Last Admin: 10/14/17 22:27 Dose: 650 mg Heparin Sodium (Porcine) (Heparin) 5,000 units SC Q8 [facility] Last Admin: 10/17/17 05:41 Dose: 5,000 units Sodium Chloride (Sodium Chloride 0.9%) 1,000 mls @ 50 mls/hr IV .Q20H [facility] Last Admin: 10/16/17 22:33 Dose: 50 mls/hr Insulin Aspart (Novolog) 0 unit SC ACHS [facility] PRN Reason: Protocol Last Admin: 10/17/17 08:26 Dose: Not Given Tamsulosin HCl (Flomax) 0.4 mg PO DAILY [facility] Last Admin: 10/17/17 09:57 Dose: 0.4 mg - Labs Labs: 10/15/17 08:17 10/17/17 07:25 PT 13.7 SECONDS (9.7-12.2) H 10/14/17 13:15 INR 1.2 10/14/17 13:15 APTT 34 SECONDS (21-34) 10/14/17 13:15 - Head Exam Head Exam: NORMAL INSPECTION - Eye Exam Eye Exam: Normal appearance - ENT Exam ENT Exam: Mucous Membranes Moist - Respiratory Exam Respiratory Exam: Clear to Ausculation Bilateral - Cardiovascular Exam Cardiovascular Exam: REGULAR RHYTHM - GI/Abdominal Exam GI & Abdominal Exam: Soft, Normal Bowel Sounds - Extremities Exam Extremities Exam: Normal Inspection Assessment and Plan - Assessment and Plan (Free Text) Assessment: KIMBERLY with hydronephrosis - Improving Bladder Outlet obstruction COPD DM Possible BPH Hematuria - Improving Urology consult Follow creatinine's Flomax Monitor I's and O's Accucheck Insulin coverage Follow electrolytes DVT/GI prophalaxis
[2017-10-17] MEDS: Sodium Chloride 0.9% 1,000 ML IV SCH (13:04)
--- NOTE | 2017-10-17 13:43 | CP.PCM.PN ---
Subjective - Date & Time of Evaluation Date of Evaluation: 10/17/17 Time of Evaluation: 13:41 - Subjective Subjective: Patient feeling good no nausea no vomiting Appetite normal no chest pain Objective - Vital Signs/Intake and Output Vital Signs (last 24 hours): Temp Pulse Resp BP Pulse Ox 98.0 F 83 18 158/51 H 96 10/17/17 07:40 10/17/17 12:42 10/17/17 07:40 10/17/17 07:40 10/17/17 07:40 Intake and Output: 10/17/17 10/17/17 06:59 18:59 Intake Total 400 Output Total 1800 Balance -1400 - Medications Medications: Current Medications Acetaminophen (Tylenol 325mg Tab) 650 mg PO Q6 PRN PRN Reason: Pain, moderate (4-7) Last Admin: 10/14/17 22:27 Dose: 650 mg Heparin Sodium (Porcine) (Heparin) 5,000 units SC Q8 [facility] Last Admin: 10/17/17 13:05 Dose: 5,000 units Sodium Chloride (Sodium Chloride 0.9%) 1,000 mls @ 50 mls/hr IV .Q20H [facility] Last Admin: 10/17/17 13:04 Dose: 50 mls/hr Insulin Aspart (Novolog) 0 unit SC ACHS [facility] PRN Reason: Protocol Last Admin: 10/17/17 12:30 Dose: 2 unit Tamsulosin HCl (Flomax) 0.4 mg PO DAILY [facility] Last Admin: 10/17/17 09:57 Dose: 0.4 mg - Labs Labs: 10/15/17 08:17 10/17/17 07:25 PT 13.7 SECONDS (9.7-12.2) H 10/14/17 13:15 INR 1.2 10/14/17 13:15 APTT 34 SECONDS (21-34) 10/14/17 13:15 - Constitutional Appears: No Acute Distress - ENT Exam ENT Exam: Mucous Membranes Moist - Respiratory Exam Respiratory Exam: NORMAL BREATHING PATTERN. absent: Chest Wall Tenderness - Cardiovascular Exam Cardiovascular Exam: REGULAR RHYTHM. absent: Rubs - GI/Abdominal Exam GI & Abdominal Exam: Soft, Normal Bowel Sounds. absent: Guarding - Exam External exam: absent: Ecchymosis - Extremities Exam Extremities Exam: absent: Calf Tenderness - Back Exam Back Exam: absent: CVA tenderness (L), CVA tenderness (R) - Neurological Exam Neurological Exam: Alert - Psychiatric Exam Psychiatric exam: Anxious - Skin Skin Exam: absent: Cyanosis Assessment and Plan (1) Acute renal failure Assessment & Plan: Patient appeared to be recovering from acute kidney injury from obstructive uropathy. Serum creatinine came down 1.2 Electrolyte ok Bilateral hydronephrosis initially and PSA is still pending and follow-up by urologist thank you for this interesting case with follow-up as needed Status: Acute (2) Obstructive uropathy Status: Acute
--- NOTE | 2017-10-17 15:31 | US ---
PROCEDURE: Ultrasound of the Kidneys HISTORY: hydronephrosis, bladder wall obstruction COMPARISON: None available. TECHNIQUE: Sonogram of the kidneys. FINDINGS: RIGHT KIDNEY: Measures: 12.6 cm. Normal in size, contour and echogenicity. Mid to upper pole cortical cyst, 3.3 x 3.3 x 3.4 cm. No solid mass. No calculus or hydronephrosis. LEFT KIDNEY: Measures: 13.3 cm. Normal in size, contour and echogenicity. No stone, solid mass lesion or hydronephrosis visualized. OTHER FINDINGS: None. IMPRESSION: 3.4 cm mid to upper right renal cortical cyst. Otherwise unremarkable.
[2017-10-18] MEDS: Sodium Chloride 0.9% 1,000 ML IV SCH (06:30)
[2017-10-18] MEDS: (Novolog) Insulin Aspart, Recombinant 100 u/ml 10 ml vial SC SCH ×4 (08:30→22:26)
--- NOTE | 2017-10-18 14:54 | CP.PCM.PN ---
Subjective - Date & Time of Evaluation Date of Evaluation: 10/18/17 Time of Evaluation: 14:54 - Subjective Subjective: Patient seen and examined No events overnight Objective - Vital Signs/Intake and Output Vital Signs (last 24 hours): Temp Pulse Resp BP Pulse Ox 98.6 F 83 20 137/76 97 10/18/17 08:15 10/18/17 12:00 10/18/17 08:15 10/18/17 08:15 10/18/17 08:15 Intake and Output: 10/18/17 10/18/17 06:59 18:59 Intake Total 1100 Output Total 1775 Balance -675 - Medications Medications: Current Medications Acetaminophen (Tylenol 325mg Tab) 650 mg PO Q6 PRN PRN Reason: Pain, moderate (4-7) Last Admin: 10/14/17 22:27 Dose: 650 mg Insulin Aspart (Novolog) 0 unit SC ACHS [facility] PRN Reason: Protocol Last Admin: 10/18/17 12:30 Dose: 2 unit Tamsulosin HCl (Flomax) 0.4 mg PO DAILY [facility] Last Admin: 10/18/17 09:26 Dose: 0.4 mg - Labs Labs: 10/15/17 08:17 10/17/17 07:25 PT 13.7 SECONDS (9.7-12.2) H 10/14/17 13:15 INR 1.2 10/14/17 13:15 APTT 34 SECONDS (21-34) 10/14/17 13:15 - Head Exam Head Exam: NORMAL INSPECTION - Eye Exam Eye Exam: Normal appearance - ENT Exam ENT Exam: Mucous Membranes Moist - Respiratory Exam Respiratory Exam: Clear to Ausculation Bilateral, NORMAL BREATHING PATTERN - Cardiovascular Exam Cardiovascular Exam: REGULAR RHYTHM, +S1, +S2 - GI/Abdominal Exam GI & Abdominal Exam: Soft, Normal Bowel Sounds - Extremities Exam Extremities Exam: Normal Inspection Assessment and Plan - Assessment and Plan (Free Text) Assessment: KIMBERLY with hydronephrosis - Improving Bladder Outlet obstruction COPD DM Possible BPH Hematuria - Improving Awaiting cystoscopy Flomax Monitor I's and O's Accucheck Insulin coverage Follow electrolytes DVT/GI prophalaxis
--- NOTE | 2017-10-18 16:10 | CP.PCM.PN ---
Subjective - Date & Time of Evaluation Date of Evaluation: 10/18/17 Time of Evaluation: 16:08 - Subjective Subjective: Follow up Nephrology Consultation: Assessment: Stable Acute Kidney Injury (N17.9) likely due to bladder outlet obstruction with b/l hydronephrosis: resolved Active smoker Hyponatremia, acidosis, Hyperkalemia: resolved anemia Plan renal function close to normal BP controlled Monitor Input/Output, daily weights and renal function with basic metabolic panel d/c IVF started flomax urology eval Dose meds/antibiotics for improved GFR. Avoid fleets enema/magnesium based laxatives. Avoid nephrotoxins/NSAIDs/ iodinated contrast (unless needed emergently) Glycemic control Further work up/management as per primary team pt advised to stop smoking Thanks for allowing me to participate in care of your patient. Will follow patient with you. Please call if any Qs. Dr Kieran Espinosa Office: [phone] Chief Complaint; unable to urinate HPI: Pt is a 72 M without much medical hx but active smoker presented with complaints of unable to urinate for 1 week. he had nocturia prior to that but he denies other symptoms of LUTS he was found to have urine retention and womack catheter drained ~ 2 L urine soon after. Denies OTC/herbal meds or NSAIDs No recent iodinated contrast exposure. No obvious episodes of low BP. ROS: Cardiovascular: No chest pain. Pulmonary: No shortness of breath Gastrointestinal: denies abdominal pain No nausea. No vomiting. Genitourinary: unable to urinate. All other negative Physical Examination: General Appearance: Comfortable, in no acute respiratory distress, co-operative . Vitals reviewed and noted as below Head; Atraumatic, normocephalic ENT: no ulcers no thrush. Tongue is midline. Oropharynx: no rash or ulcers. EYES: Pupils are equal, round and reactive to light accommodation. Eye muscles and extraocular movement intact. Sclera is anicteric. Neck; supple no lymphadenopathy, no thyromegaly or bruit Lungs: Normal respiratory rate/effort. Breath sounds bilateral equal and clear Heart: Normal rate. s1s2 normal. No rub or gallop. Extremities: no edema. No varicose veins Neurological: Patient is alert, awake and oriented to person, place and time. No focal deficit. Strength bilateral appropriate and equal Skin: Warm and dry. Normal turgor. No rash. Palpitation: Normal elasticity for age Abdomen: Abdomen is soft. Bowel sounds +. There is no abdominal tenderness, no guarding/rigidity no organomegaly Psych: normal insight and normal affect/mood MSK: no joint tenderness or swelling. Digits and nails normal, no deformity : kidney or bladder not palpable. has womack. Labs/imaging reviewed. Past medical history, past surgical history, family history, social history, allergy reviewed and noted as below Family hx: no hx of CKD. Rest non-contributory renao sono repeat: WNL Objective - Vital Signs/Intake and Output Vital Signs (last 24 hours): Temp Pulse Resp BP Pulse Ox 98.6 F 83 20 137/76 97 10/18/17 08:15 10/18/17 12:00 10/18/17 08:15 10/18/17 08:15 10/18/17 08:15 Intake and Output: 10/18/17 10/18/17 06:59 18:59 Intake Total 1100 550 Output Total 1775 300 Balance -675 250 - Medications Medications: Current Medications Acetaminophen (Tylenol 325mg Tab) 650 mg PO Q6 PRN PRN Reason: Pain, moderate (4-7) Last Admin: 10/14/17 22:27 Dose: 650 mg Insulin Aspart (Novolog) 0 unit SC ACHS [facility] PRN Reason: Protocol Last Admin: 10/18/17 12:30 Dose: 2 unit Tamsulosin HCl (Flomax) 0.4 mg PO DAILY [facility] Last Admin: 10/18/17 09:26 Dose: 0.4 mg - Labs Labs: 10/15/17 08:17 10/17/17 07:25 PT 13.7 SECONDS (9.7-12.2) H 10/14/17 13:15 INR 1.2 10/14/17 13:15 APTT 34 SECONDS (21-34) 10/14/17 13:15
--- NOTE | 2017-10-18 21:50 | RAD ---
PROCEDURE: CHEST RADIOGRAPH, 1 VIEW HISTORY: pre op COMPARISON: None available. FINDINGS: LUNGS: Clear. PLEURA: No pneumothorax or pleural fluid seen. CARDIOVASCULAR: Normal. OSSEOUS STRUCTURES: No significant abnormalities. VISUALIZED UPPER ABDOMEN: Normal. OTHER FINDINGS: None. IMPRESSION: No active disease.
--- NOTE | 2017-10-19 00:43 | CON ---
DATE: HISTORY OF PRESENT ILLNESS: Patient is a 72-year-old who presented to the ER with acute renal failure. Patient has retention and Masterson catheter inserted. Patient had bilateral hydro. His creatinine was 8. After inserting the Masterson, followup, his creatinine started to decrease gradually. Patient has long history of prostatism, frequency, low stream, dripping. Did not see urologist before. A smoker of [id number] pack daily and he has some COPD with coughing periodically. Patient had no surgeries. Alcoholic intake occasionally and socially. No previous PSA done. He is not on any medication for the prostatic hypertrophy. PHYSICAL EXAMINATION ABDOMEN: Soft. No flank tenderness. No kidney palpable. No suprapubic fullness or tenderness. GENITOURINARY: Testes in the scrotum. Penis normal. Redundant foreskin. Masterson catheter functioning well, no bleeding. RECTAL: Patient was uncooperative and I could feel the prostate gland. IMPRESSION: Outlet obstruction; acute renal failure, improved after drainage. PLAN: To repeat renal ultrasound and to do a renal ultrasound to evaluate the hydro which was present and patient will need workup. Ryan Crawford MD
[2017-10-19] MEDS: (Novolog) Insulin Aspart, Recombinant 100 u/ml 10 ml vial SC SCH ×4 (08:23→22:31)
[2017-10-19 09:05] LABS: BASO % 0.8 % (0.0-2.0); EOS # 0.4 K/uL (0.0-0.7); EOS % 5.7 % (0.0-4.0); HEMOGLOBIN 10.9 g/dL (12.0-18.0); LYMPH # 1.7 K/uL (1.0-4.3); MEAN CELL VOLUME 82.1 fL (80.0-94.0); MEAN CORPUSCULAR HEMOGLOBIN 27.3 pg (27.0-31.0); MEAN CORPUSCULAR HGB CONC 33.3 g/dL (33.0-37.0); MEAN PLATELET VOLUME 9.3 fL (7.2-11.7); MONO # 0.6 K/uL (0.0-0.8); MONO % 9.8 % (0.0-10.0); NEUT # 3.7 K/uL (1.8-7.0); NEUT % 56.7 % (50.0-75.0); RBC 3.98 Mil/uL (4.40-5.90); RED CELL DISTRIBUTION WIDTH 16.1 % (11.5-14.5); WHITE BLOOD COUNT 6.5 K/uL (4.8-10.8)
[2017-10-19 09:12] LABS: INR 1.2; PROTHROMBIN TIME 13.1 SECONDS (9.7-12.2)
[2017-10-19 09:39] LABS: BLOOD UREA NITROGEN 16 mg/dL (9-20); CALCIUM 8.2 mg/dl (8.6-10.4); GFR AFRICAN-AMERICAN > 60; GFR NON-AFRICAN AMERICAN > 60
--- NOTE | 2017-10-19 16:16 | CP.PCM.PN ---
Subjective - Date & Time of Evaluation Date of Evaluation: 10/19/17 Time of Evaluation: 16:16 - Subjective Subjective: Follow up Nephrology Consultation: Assessment: Stable Acute Kidney Injury (N17.9) likely due to bladder outlet obstruction with b/l hydronephrosis: resolved Active smoker Hyponatremia, acidosis, Hyperkalemia: resolved anemia Plan renal function close to normal BP controlled started flomax urology eval appreciated. plan for cystoscopy tomorrow Dose meds/antibiotics for improved GFR. Glycemic control Further work up/management as per primary team pt advised to stop smoking Thanks for allowing me to participate in care of your patient. Will follow patient with you. Please call if any Qs. Dr Kieran Espinosa Office: [phone] HPI: Pt is a 72 M without much medical hx but active smoker presented with complaints of unable to urinate for 1 week. he had nocturia prior to that but he denies other symptoms of LUTS he was found to have urine retention and womack catheter drained ~ 2 L urine soon after. Denies OTC/herbal meds or NSAIDs No recent iodinated contrast exposure. No obvious episodes of low BP. ROS: Cardiovascular: No chest pain. Pulmonary: No shortness of breath Gastrointestinal: denies abdominal pain No nausea. No vomiting. Genitourinary: none now All other negative Physical Examination: General Appearance: Comfortable, in no acute respiratory distress, co-operative . Vitals reviewed and noted as below Head; Atraumatic, normocephalic ENT: no ulcers no thrush. Tongue is midline. Oropharynx: no rash or ulcers. EYES: Pupils are equal, round and reactive to light accommodation. Eye muscles and extraocular movement intact. Sclera is anicteric. Neck; supple no lymphadenopathy, no thyromegaly or bruit Lungs: Normal respiratory rate/effort. Breath sounds bilateral equal and clear Heart: Normal rate. s1s2 normal. No rub or gallop. Extremities: no edema. No varicose veins Neurological: Patient is alert, awake and oriented to person, place and time. No focal deficit. Strength bilateral appropriate and equal Skin: Warm and dry. Normal turgor. No rash. Palpitation: Normal elasticity for age Abdomen: Abdomen is soft. Bowel sounds +. There is no abdominal tenderness, no guarding/rigidity no organomegaly Psych: normal insight and normal affect/mood MSK: no joint tenderness or swelling. Digits and nails normal, no deformity : kidney or bladder not palpable. has womack. Labs/imaging reviewed. Past medical history, past surgical history, family history, social history, allergy reviewed and noted as below Family hx: no hx of CKD. Rest non-contributory renao sono repeat: WNL Objective - Vital Signs/Intake and Output Vital Signs (last 24 hours): Temp Pulse Resp BP Pulse Ox 98.1 F 76 20 118/88 95 10/19/17 15:52 10/19/17 15:52 10/19/17 15:52 10/19/17 15:52 10/19/17 15:52 Intake and Output: 10/19/17 10/19/17 06:59 18:59 Intake Total 236 500 Output Total 1390 600 Balance -1154 -100 - Medications Medications: Current Medications Acetaminophen (Tylenol 325mg Tab) 650 mg PO Q6 PRN PRN Reason: Pain, moderate (4-7) Last Admin: 10/14/17 22:27 Dose: 650 mg Insulin Aspart (Novolog) 0 unit SC ACHS [facility] PRN Reason: Protocol Last Admin: 10/19/17 12:30 Dose: Not Given Tamsulosin HCl (Flomax) 0.4 mg PO DAILY [facility] Last Admin: 10/19/17 10:12 Dose: 0.4 mg - Labs Labs: 10/19/17 08:50 10/19/17 08:50 PT 13.1 SECONDS (9.7-12.2) H 10/19/17 08:50 INR 1.2 10/19/17 08:50 APTT 34 SECONDS (21-34) 10/19/17 08:50
--- NOTE | 2017-10-19 20:14 | CP.PCM.PN ---
Subjective - Date & Time of Evaluation Date of Evaluation: 10/19/17 Time of Evaluation: 20:13 - Subjective Subjective: Pt seen and examined No events overnight Objective - Vital Signs/Intake and Output Vital Signs (last 24 hours): Temp Pulse Resp BP Pulse Ox 98.1 F 76 20 118/88 95 10/19/17 15:52 10/19/17 15:52 10/19/17 15:52 10/19/17 15:52 10/19/17 15:52 Intake and Output: 10/19/17 10/20/17 18:59 06:59 Intake Total 500 Output Total 600 Balance -100 - Medications Medications: Current Medications Acetaminophen (Tylenol 325mg Tab) 650 mg PO Q6 PRN PRN Reason: Pain, moderate (4-7) Last Admin: 10/14/17 22:27 Dose: 650 mg Insulin Aspart (Novolog) 0 unit SC ACHS [facility] PRN Reason: Protocol Last Admin: 10/19/17 17:15 Dose: Not Given Tamsulosin HCl (Flomax) 0.4 mg PO DAILY [facility] Last Admin: 10/19/17 10:12 Dose: 0.4 mg - Labs Labs: 10/19/17 08:50 10/19/17 08:50 PT 13.1 SECONDS (9.7-12.2) H 10/19/17 08:50 INR 1.2 10/19/17 08:50 APTT 34 SECONDS (21-34) 10/19/17 08:50 - Head Exam Head Exam: NORMAL INSPECTION - Eye Exam Eye Exam: Normal appearance - ENT Exam ENT Exam: Mucous Membranes Moist - Respiratory Exam Respiratory Exam: Clear to Ausculation Bilateral - Cardiovascular Exam Cardiovascular Exam: REGULAR RHYTHM, +S1, +S2 - GI/Abdominal Exam GI & Abdominal Exam: Soft, Normal Bowel Sounds - Extremities Exam Extremities Exam: Normal Inspection - Neurological Exam Neurological Exam: Alert, Oriented x3 Assessment and Plan - Assessment and Plan (Free Text) Assessment: KIMBERLY with hydronephrosis - resolved Bladder Outlet obstruction COPD DM Possible BPH RBBB Pt to go for cystoscopy Accucheck Insulin coverage Follow electrolytes Awaiting Cardiology consult as 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
[2017-10-19 21:26] LABS: BLOOD UREA NITROGEN 20 mg/dL (9-20); GFR AFRICAN-AMERICAN 52; GFR NON-AFRICAN AMERICAN 43
--- NOTE | 2017-10-19 21:52 | CP.PCM.CON ---
History of Present Illness - History of Present Illness History of Present Illness: Reason For Consultation: Cardiac pauses HPI: 72 M with hx of obesity, HTN, Hyperlipidemia and DM 2 originally admitted for Acute renal failure secondary to Obstructive etiology Patient supposed to go for urological iintervention tomorrow RN noted cardiac pauses of 2 sec duration this morning Patient denies any reent cardiac work up Recommend ECHO, Stress test, TSH and Trponin checks prior to surgery 72 y/o male with PMHx of HTN and DM presents to ED with complaints of dysuria for "last few days"and bilateral flank pain. Patient denies fever, chills, abdominal pain, nausea, vomiting or any other complaints at this time. Masterson placed in ED drained over 2 L of urine. Patient has elevated creatinine and bilateral hydronephrosis Present on Admission - Present on Admission Any Indicators Present on Admission: No History of DVT/PE: No History of Uncontrolled Diabetes: No Urinary Catheter: No Decubitus Ulcer Present: No Review of Systems - Review of Systems All systems: reviewed and no additional remarkable complaints except (As mentioned in HPI) Past Patient History - Infectious Disease Hx of Infectious Diseases: None - Past Social History Smoking Status: Heavy Smoker > 10 Cigarettes Daily - CARDIAC Hx Hypertension: Yes - PULMONARY Hx Chronic Obstructive Pulmonary Disease (COPD): Yes - ENDOCRINE/METABOLIC Hx Diabetes Mellitus Type 1: Yes - PSYCHIATRIC Hx Substance Use: No - SURGICAL HISTORY Hx Surgeries: Yes Hx Amputation: Yes Hx Herniorrhaphy: Yes - ANESTHESIA Hx Anesthesia: Yes Hx Anesthesia Reactions: No Meds Allergies/Adverse Reactions: Allergies Allergy/AdvReac Type Severity Reaction Status Date / Time No Known Allergies Allergy Unverified 10/14/17 13:01 Physical Exam - Head Exam Head Exam: NORMAL INSPECTION - Eye Exam Eye Exam: Normal appearance - ENT Exam ENT Exam: Mucous Membranes Moist - Respiratory Exam Respiratory Exam: Clear to Auscultation Bilateral, NORMAL BREATHING PATTERN - Cardiovascular Exam Cardiovascular Exam: REGULAR RHYTHM, +S1, +S2 - GI/Abdominal Exam GI & Abdominal Exam: Normal Bowel Sounds, Soft - Extremities Exam Extremities exam: Positive for: normal inspection Past Patient History - Infectious Disease Hx of Infectious Diseases: None - Past Medical History & Family History Past Medical History?: Yes - Past Social History Smoking Status: Heavy Smoker > 10 Cigarettes Daily - CARDIAC Hx Hypertension: Yes - PULMONARY Hx Chronic Obstructive Pulmonary Disease (COPD): Yes - ENDOCRINE/METABOLIC Hx Diabetes Mellitus Type 1: Yes - MUSCULOSKELETAL/RHEUMATOLOGICAL Hx Falls: No - PSYCHIATRIC Hx Substance Use: No - SURGICAL HISTORY Hx Surgeries: Yes Hx Amputation: Yes Hx Herniorrhaphy: Yes - ANESTHESIA Hx Anesthesia: Yes Hx Anesthesia Reactions: No Meds Home Medications: Home Medication List Medication Instructions Recorded Confirmed Type Albuterol HFA [Ventolin HFA 90 0.09 mg IH Q6 PRN #1 puff 10/28/17 Rx mcg/actuation (8 g)] Bicalutamide [Casodex] 50 mg PO DAILY #30 tab 10/28/17 Rx Bisacodyl [Dulcolax] 10 mg PO DAILY ect 10/28/17 Rx Cephalexin [Keflex] 500 mg PO Q12 #10 cap 10/28/17 Rx Allergies/Adverse Reactions: Allergies Allergy/AdvReac Type Severity Reaction Status Date / Time No Known Allergies Allergy Unverified 10/14/17 13:01 - Medications Medications: Current Medications Acetaminophen (Tylenol 325mg Tab) 650 mg PO Q6 PRN PRN Reason: Pain, moderate (4-7) Last Admin: 10/14/17 22:27 Dose: 650 mg Insulin Aspart (Novolog) 0 unit SC ACHS [facility] PRN Reason: Protocol Last Admin: 10/19/17 17:15 Dose: Not Given Tamsulosin HCl (Flomax) 0.4 mg PO DAILY [facility] Last Admin: 10/19/17 10:12 Dose: 0.4 mg Results - Vital Signs Recent Vital Signs: Last Vital Signs Temp 98.1 F 10/19/17 15:52 Pulse 94 H 10/19/17 16:00 Resp 20 10/19/17 15:52 BP 118/88 10/19/17 15:52 Pulse Ox 95 10/19/17 15:52 - Labs Result Diagrams: 10/27/17 14:34 10/27/17 14:34 Labs: Laboratory Results - last 24 hr 10/18/17 10/19/17 10/19/17 22:19 06:36 08:50 WBC 6.5 RBC 3.98 L Hgb 10.9 L Hct 32.7 L MCV 82.1 MCH 27.3 MCHC 33.3 RDW 16.1 H Plt Count 247 MPV 9.3 Neut % (Auto) 56.7 Lymph % (Auto) 27.0 [place] % (Auto) 9.8 Eos % (Auto) 5.7 H Baso % (Auto) 0.8 Neut # 3.7 Lymph # 1.7 [place] # 0.6 Eos # 0.4 Baso # 0.0 PT INR APTT Sodium Potassium Chloride Carbon Dioxide Anion Gap BUN Creatinine Est GFR ( Amer) Est GFR (Non-Af Amer) POC Glucose (mg/dL) 136 H 125 H Random Glucose Calcium Troponin I 10/19/17 10/19/17 10/19/17 08:50 08:50 12:13 WBC RBC Hgb Hct MCV MCH MCHC RDW Plt Count MPV Neut % (Auto) Lymph % (Auto) [place] % (Auto) Eos % (Auto) Baso % (Auto) Neut # Lymph # [place] # Eos # Baso # PT 13.1 H INR 1.2 APTT 34 Sodium 135 Potassium 4.0 Chloride 102 Carbon Dioxide 29 Anion Gap 8 L BUN 16 Creatinine 1.1 Est GFR ( Amer) > 60 Est GFR (Non-Af Amer) > 60 POC Glucose (mg/dL) 125 H Random Glucose 128 H Calcium 8.2 L Troponin I 10/19/17 10/19/17 10/19/17 17:39 21:00 21:10 WBC RBC Hgb Hct MCV MCH MCHC RDW Plt Count MPV Neut % (Auto) Lymph % (Auto) [place] % (Auto) Eos % (Auto) Baso % (Auto) Neut # Lymph # [place] # Eos # Baso # PT INR APTT Sodium 134 Potassium 3.7 Chloride 101 Carbon Dioxide 28 Anion Gap 9 L BUN 20 Creatinine 1.6 H Est GFR ( Amer) 52 Est GFR (Non-Af Amer) 43 POC Glucose (mg/dL) 126 H 229 H Random Glucose 191 H Calcium 8.0 L Troponin I < 0.0120 Assessment & Plan - Assessment and Plan (Free Text) Assessment: HTN s/p Obstructive Uropathy Cardiac arrhythmias
[2017-10-20] MEDS: (Novolog) Insulin Aspart, Recombinant 100 u/ml 10 ml vial SC SCH ×4 (08:02→22:19)
[2017-10-20] MEDS ORDERED: Aminophylline 25 mg/ml Inj ONE (08:51)
--- NOTE | 2017-10-20 09:33 | PN ---
DATE: FOLLOWUP Renal ultrasound was done, which revealed no hydro, it subsided. The creatinine dropped from 8 to 0.8. Masterson catheter functioning well. I am going to prepare him and clear him for cystoscopy. PSA ordered. Ryan Crawford MD
--- NOTE | 2017-10-20 12:15 | CARD ---
APPROVED REPORT EXAM: Two-dimensional and M-mode echocardiogram with Doppler and color Doppler. Other Information Quality : GoodRhythm : INDICATION Abnormal EKG/Arrhythmia COPD RISK FACTORS Hypertension Diabetes 2D DIMENSIONS IVSd1.4 (0.7-1.1cm)LVDd4.5 (3.9-5.9cm) PWd1.2 (0.7-1.1cm)LVDs2.1 (2.5-4.0cm) FS (%) 53.2 %LVEF (%)84.3 (>50%) M-Mode DIMENSIONS Left Atrium (MM)4.38 (2.5-4.0cm)Aortic Root4.27 (2.2-3.7cm) Aortic Cusp Exc.2.36 (1.5-2.0cm) Mitral Valve MV E Hfofmooi85.2cm/sMV A Figxapeo729.1cm/sE/A ratio0.7 TDI E/Lateral E'0.0E/Medial E'0.0 Tricuspid Valve TR Peak Xlnsurfd179px/sTR Peak Gr.63qtSfNBKS26yvSm LEFT VENTRICLE The left ventricle is normal size. There is borderline to mild concentric left ventricular hypertrophy. The left ventricular function is normal. The left ventricular ejection fraction is within the normal range. The Ejection Fraction is 60-65%. There is normal LV segmental wall motion. Transmitral Doppler flow pattern is Grade I-abnormal relaxation pattern. No left ventricle thrombus noted on this study. There is no ventricular septal defect visualized. There is no left ventricular aneurysm. There is no mass noted in the left ventricle. RIGHT VENTRICLE The right ventricle is normal size. There is normal right ventricular wall thickness. The right ventricular systolic function is normal. ATRIA The left atrium is mildly dilated. The right atrium size is normal. The interatrial septum is intact with no evidence for an atrial septal defect. AORTIC VALVE The aortic valve is normal in structure. No aortic regurgitation is present. There is no aortic valvular stenosis. There is no aortic valvular vegetation. MITRAL VALVE The mitral valve is normal in structure. There is no evidence of mitral valve prolapse. There is no mitral valve stenosis. Mitral regurgitation is trace to mild. TRICUSPID VALVE The tricuspid valve is normal in structure. There is trace to mild tricuspid regurgitation. There is no tricuspid valve prolapse or vegetation. There is no tricuspid valve stenosis. PULMONIC VALVE The pulmonary valve is normal in structure. There is no pulmonic valvular regurgitation. There is no pulmonic valvular stenosis. GREAT VESSELS The aortic root is normal in size. The ascending aorta is normal in size. The pulmonary artery is normal. The IVC is normal in size and collapses >50% with inspiration. PERICARDIAL EFFUSION There is no pericardial effusion. There is no pleural effusion. <Conclusion> The left ventricular function is normal. The left ventricular ejection fraction is within the normal range. The Ejection Fraction is 60-65%. Transmitral Doppler flow pattern is Grade I-abnormal relaxation pattern. The left atrium is mildly dilated. Mitral regurgitation is trace to mild. There is trace to mild tricuspid regurgitation.
[2017-10-20] MEDS: Sodium Chloride 0.9% 1,000 ML IV SCH ×2 (12:48→22:20)
--- NOTE | 2017-10-20 13:37 | CARD ---
APPROVED REPORT Protocol: LEXISCAN Test Indications: PRE OP Medical History: CP Target HR: 149 bpm Resting ECG: normal Resting Heart Rate: 85 bpm Resting Blood Pressure: 140/80mmHg submaximum (85%): 127 bpm TEST SUMMARY PREINFSNHYPERV.35:[id number]/80.0. INFUSIONDOSE 100:300.00.01.075/.0. [id number]:420.00.01.099/.0. PROCEDURE Pharmacologic stress testing was performed using 0.4mg per 5ml of regadenoson given intravenously over 7-10 seconds. POST EXERCISE Reason for Termination: Protocol Completed Target HR: No Max HR: 75 bpm 66% of Maximum Predicted HR: 149 bpm Exercise duration: 00:30 min:sec, 0 Stage Exercise capacity: 1.0METs Max Blood Pressure: 140/80mmHg Blood Pressure response to exercise: normal resting BP - appropriate response Heart Rate response to exercise: appropriate Chest Pain: No, none Angina index: 0 Arrhythmia: No, none ST Change: No, none Deviation: 0 mm EXAM: Myocardial Perfusion REST/STRESS Imaging Protocol The imaging protocol used to acquire images was Rest Tc-99m/stress Tc-99m 1 day Rest Spect myocardial perfusion imaging was performed in supine position 45 minutes following the injection of 13.2 mCi of Tc-99 Myoview. Gated Stress Spect was performed 45 minutes after intravenous 33.0 mCi Tc-99 Myoview injection. The images were gated to evaluate regional wall motion and calculate ventricular ejection fraction.Images were reconstructed using backfilter projection method in short horizontal and verticle long axis. Spect slices were generated. RESTING DATA DAE423.30iqYD9.60L/min ESV34.00mlMyocardial Yoor168.00g Av. Heart Rate82.00bpm EF67.00% STRESS DATA OKD645.25ytEL7.60L/min ESV35.00mlMyocardial Lxpo719.00g EF65.00% Regional WT score at stress:3.00 Regional WM score at stress:0.00 Summed WT score at stress:19.00 Av. Heart Rate86.00bpmSummed WM score at stress:4.00 Study quality was fair. Left Ventricular size was Normal at Rest and Stress. The rest and stress images show normal perfusion, normal contraction and thickening. LV Perf. Quant 17 Seg. SSS2.00 17 Seg. SRS6.00 17 Seg. SDS0.00 Stress Defect Extent (% LAD)0.00Rest Defect Extent (% LAD)1.90Rev. Defect Extent (% LAD)0.00 Stress Defect Extent (% LCX)17.50Rest Defect Extent (% LCX)36.30Rev. Defect Extent (% LCX)0.00 Stress Defect Extent (% RCA)0.00Rest Defect Extent (% RCA)0.00Rev. Defect Extent (% RCA)0.00 Stress Defect Extent (% TAINA)4.30Rest Defect Extent (% TAINA)10.90Rev. Defect Extent (% TAINA)0.00 Other Information Quality:Fair Overall Exercise Capacity: not assessed Conclusion 1. - No evidence of ischemia 2. - Normal LVEF
--- NOTE | 2017-10-20 16:04 | CP.PCM.PN ---
Subjective - Date & Time of Evaluation Date of Evaluation: 10/20/17 Time of Evaluation: 16:03 - Subjective Subjective: Follow up Nephrology Consultation: Assessment: Stable Acute Kidney Injury (N17.9) likely due to bladder outlet obstruction with b/l hydronephrosis: resolved Active smoker Hyponatremia, acidosis, Hyperkalemia: resolved anemia Plan renal function close to normal nut higher cr today hence will restart IVF BP controlled started flomax urology eval appreciated. plan for cystoscopy friday cardiology evaluated for pause on tele. stress test and echo done Dose meds/antibiotics for improved GFR. Glycemic control Further work up/management as per primary team pt advised to stop smoking Thanks for allowing me to participate in care of your patient. Will follow patient with you. Please call if any Qs. Dr Kieran Espinosa Office: [phone] HPI: Pt is a 72 M without much medical hx but active smoker presented with complaints of unable to urinate for 1 week. he had nocturia prior to that but he denies other symptoms of LUTS he was found to have urine retention and womack catheter drained ~ 2 L urine soon after. Denies OTC/herbal meds or NSAIDs No recent iodinated contrast exposure. No obvious episodes of low BP. ROS: Cardiovascular: No chest pain. Pulmonary: No shortness of breath Gastrointestinal: denies abdominal pain No nausea. No vomiting. Genitourinary: none now All other negative Physical Examination: General Appearance: Comfortable, in no acute respiratory distress, co-operative . Vitals reviewed and noted as below Head; Atraumatic, normocephalic ENT: no ulcers no thrush. Tongue is midline. Oropharynx: no rash or ulcers. EYES: Pupils are equal, round and reactive to light accommodation. Eye muscles and extraocular movement intact. Sclera is anicteric. Neck; supple no lymphadenopathy, no thyromegaly or bruit Lungs: Normal respiratory rate/effort. Breath sounds bilateral equal and clear Heart: Normal rate. s1s2 normal. No rub or gallop. Extremities: no edema. No varicose veins Neurological: Patient is alert, awake and oriented to person, place and time. No focal deficit. Strength bilateral appropriate and equal Skin: Warm and dry. Normal turgor. No rash. Palpitation: Normal elasticity for age Abdomen: Abdomen is soft. Bowel sounds +. There is no abdominal tenderness, no guarding/rigidity no organomegaly Psych: normal insight and normal affect/mood MSK: no joint tenderness or swelling. Digits and nails normal, no deformity : kidney or bladder not palpable. has womack. Labs/imaging reviewed. Past medical history, past surgical history, family history, social history, allergy reviewed and noted as below Family hx: no hx of CKD. Rest non-contributory renao sono repeat: WNL Objective - Vital Signs/Intake and Output Vital Signs (last 24 hours): Temp Pulse Resp BP Pulse Ox 98.9 F 83 18 138/69 93 L 10/20/17 07:25 10/20/17 12:00 10/20/17 07:25 10/20/17 07:25 10/20/17 07:25 Intake and Output: 10/20/17 10/20/17 06:59 18:59 Intake Total 600 600 Output Total 1150 600 Balance -550 0 - Medications Medications: Current Medications Acetaminophen (Tylenol 325mg Tab) 650 mg PO Q6 PRN PRN Reason: Pain, moderate (4-7) Last Admin: 10/14/17 22:27 Dose: 650 mg Sodium Chloride (Sodium Chloride 0.9%) 1,000 mls @ 100 mls/hr IV .Q10H [facility] Last Admin: 10/20/17 12:48 Dose: 100 mls/hr Insulin Aspart (Novolog) 0 unit SC ACHS [facility] PRN Reason: Protocol Last Admin: 10/20/17 12:28 Dose: 2 unit Tamsulosin HCl (Flomax) 0.4 mg PO DAILY [facility] Last Admin: 10/20/17 12:49 Dose: 0.4 mg - Labs Labs: 10/19/17 08:50 10/19/17 21:00 PT 13.1 SECONDS (9.7-12.2) H 10/19/17 08:50 INR 1.2 10/19/17 08:50 APTT 34 SECONDS (21-34) 10/19/17 08:50
--- NOTE | 2017-10-20 19:12 | CP.PCM.PN ---
Subjective - Date & Time of Evaluation Date of Evaluation: 10/20/17 Time of Evaluation: 19:12 - Subjective Subjective: Patient seen and examined No events overnight Objective - Vital Signs/Intake and Output Vital Signs (last 24 hours): Temp Pulse Resp BP Pulse Ox 97.9 F 89 20 124/65 95 10/20/17 16:00 10/20/17 16:00 10/20/17 16:00 10/20/17 16:00 10/20/17 16:00 Intake and Output: 10/20/17 10/21/17 18:59 06:59 Intake Total 600 Output Total 600 Balance 0 - Medications Medications: Current Medications Acetaminophen (Tylenol 325mg Tab) 650 mg PO Q6 PRN PRN Reason: Pain, moderate (4-7) Last Admin: 10/14/17 22:27 Dose: 650 mg Sodium Chloride (Sodium Chloride 0.9%) 1,000 mls @ 100 mls/hr IV .Q10H [facility] Last Admin: 10/20/17 12:48 Dose: 100 mls/hr Insulin Aspart (Novolog) 0 unit SC ACHS [facility] PRN Reason: Protocol Last Admin: 10/20/17 18:17 Dose: 2 unit Tamsulosin HCl (Flomax) 0.4 mg PO DAILY [facility] Last Admin: 10/20/17 12:49 Dose: 0.4 mg - Labs Labs: 10/19/17 08:50 10/19/17 21:00 PT 13.1 SECONDS (9.7-12.2) H 10/19/17 08:50 INR 1.2 10/19/17 08:50 APTT 34 SECONDS (21-34) 10/19/17 08:50 - Head Exam Head Exam: NORMAL INSPECTION - Eye Exam Eye Exam: Normal appearance - ENT Exam ENT Exam: Mucous Membranes Moist - Respiratory Exam Respiratory Exam: Clear to Ausculation Bilateral, NORMAL BREATHING PATTERN - Cardiovascular Exam Cardiovascular Exam: REGULAR RHYTHM, +S1, +S2 - GI/Abdominal Exam GI & Abdominal Exam: Soft, Normal Bowel Sounds - Extremities Exam Extremities Exam: Normal Inspection Assessment and Plan - Assessment and Plan (Free Text) Assessment: KIMBERLY with hydronephrosis - resolved Bladder Outlet obstruction COPD DM BPH RBBB Pt to go for cystoscopy Accucheck Insulin coverage Follow electrolytes Follow creatinine IV fluids DVT/GI prophalaxis
--- NOTE | 2017-10-21 00:05 | CARD ---
APPROVED REPORT EKG Measurement Heart Mcco43ATNA MD [id number] <Conclusion> Sinus rhythm with 1st degree AV block Right bundle branch block Abnormal ECG
[2017-10-21] MEDS: Sodium Chloride 0.9% 1,000 ML IV SCH ×3 (01:50→17:49)
--- NOTE | 2017-10-21 07:54 | PN ---
DATE: The patient is 72, was in retention. Masterson inserted. Creatinine improved, now the creatinine today 1.6. The patient needs medical clearance. Cardiology will do stress test. I will schedule him for cysto on 10/22/2017. Ryan Crawford MD
[2017-10-21 08:06] LABS: BLOOD UREA NITROGEN 20 mg/dL (9-20); CALCIUM 7.8 mg/dl (8.6-10.4); GFR AFRICAN-AMERICAN > 60; GFR NON-AFRICAN AMERICAN > 60
[2017-10-21] MEDS: (Novolog) Insulin Aspart, Recombinant 100 u/ml 10 ml vial SC SCH ×4 (08:46→21:24)
--- NOTE | 2017-10-21 13:37 | CP.PCM.PN ---
Subjective - Date & Time of Evaluation Date of Evaluation: 10/21/17 Time of Evaluation: 13:36 - Subjective Subjective: She is seen and examined No events overnight Improved creatinine Objective - Vital Signs/Intake and Output Vital Signs (last 24 hours): Temp Pulse Resp BP Pulse Ox 98 F 85 20 149/76 96 10/21/17 07:00 10/21/17 12:17 10/21/17 07:00 10/21/17 07:00 10/21/17 07:00 Intake and Output: 10/21/17 10/21/17 06:59 18:59 Intake Total 1600 Output Total 900 Balance 700 - Medications Medications: Current Medications Acetaminophen (Tylenol 325mg Tab) 650 mg PO Q6 PRN PRN Reason: Pain, moderate (4-7) Last Admin: 10/14/17 22:27 Dose: 650 mg Sodium Chloride (Sodium Chloride 0.9%) 1,000 mls @ 100 mls/hr IV .Q10H [facility] Last Admin: 10/21/17 09:14 Dose: 100 mls/hr Insulin Aspart (Novolog) 0 unit SC ACHS [facility] PRN Reason: Protocol Last Admin: 10/21/17 13:12 Dose: 2 unit Tamsulosin HCl (Flomax) 0.4 mg PO DAILY [facility] Last Admin: 10/21/17 09:14 Dose: 0.4 mg - Labs Labs: 10/19/17 08:50 10/21/17 07:10 PT 13.1 SECONDS (9.7-12.2) H 10/19/17 08:50 INR 1.2 10/19/17 08:50 APTT 34 SECONDS (21-34) 10/19/17 08:50 - Head Exam Head Exam: NORMAL INSPECTION - Eye Exam Eye Exam: Normal appearance - ENT Exam ENT Exam: Mucous Membranes Moist - Respiratory Exam Respiratory Exam: Clear to Ausculation Bilateral - Cardiovascular Exam Cardiovascular Exam: REGULAR RHYTHM, +S1, +S2 - GI/Abdominal Exam GI & Abdominal Exam: Soft, Normal Bowel Sounds - Extremities Exam Extremities Exam: Normal Inspection Assessment and Plan - Assessment and Plan (Free Text) Assessment: KIMBERLY with hydronephrosis - resolved Bladder Outlet obstruction COPD DM Possible BPH RBBB Cardiac workup is negative Patient is cleared for cystoscopy with acceptable risks Accucheck Insulin coverage Flomax COPD is at baseline DVT/GI prophalaxis
--- NOTE | 2017-10-21 15:44 | CP.PCM.PN ---
Subjective - Date & Time of Evaluation Date of Evaluation: 10/21/17 Time of Evaluation: 15:43 - Subjective Subjective: Follow up Nephrology Consultation: Assessment: Stable Acute Kidney Injury (N17.9) likely due to bladder outlet obstruction with b/l hydronephrosis: resolved Active smoker Hyponatremia, acidosis, Hyperkalemia: resolved anemia Plan renal function close to normal again with IVF BP controlled started flomax urology eval appreciated. plan for cystoscopy friday cardiology evaluated for pause on tele. stress test and echo done Dose meds/antibiotics for improved GFR. Glycemic control Further work up/management as per primary team pt advised to stop smoking Thanks for allowing me to participate in care of your patient. Will follow patient with you. Please call if any Qs. Dr Kieran Espinosa Office: [phone] HPI: Pt is a 72 M without much medical hx but active smoker presented with complaints of unable to urinate for 1 week. he had nocturia prior to that but he denies other symptoms of LUTS he was found to have urine retention and womack catheter drained ~ 2 L urine soon after. Denies OTC/herbal meds or NSAIDs No recent iodinated contrast exposure. No obvious episodes of low BP. ROS: Cardiovascular: No chest pain. Pulmonary: No shortness of breath Gastrointestinal: denies abdominal pain No nausea. No vomiting. Genitourinary: none now All other negative Physical Examination: General Appearance: Comfortable, in no acute respiratory distress, co-operative . Vitals reviewed and noted as below Head; Atraumatic, normocephalic ENT: no ulcers no thrush. Tongue is midline. Oropharynx: no rash or ulcers. EYES: Pupils are equal, round and reactive to light accommodation. Eye muscles and extraocular movement intact. Sclera is anicteric. Neck; supple no lymphadenopathy, no thyromegaly or bruit Lungs: Normal respiratory rate/effort. Breath sounds bilateral equal and clear Heart: Normal rate. s1s2 normal. No rub or gallop. Extremities: no edema. No varicose veins Neurological: Patient is alert, awake and oriented to person, place and time. No focal deficit. Strength bilateral appropriate and equal Skin: Warm and dry. Normal turgor. No rash. Palpitation: Normal elasticity for age Abdomen: Abdomen is soft. Bowel sounds +. There is no abdominal tenderness, no guarding/rigidity no organomegaly Psych: normal insight and normal affect/mood MSK: no joint tenderness or swelling. Digits and nails normal, no deformity : kidney or bladder not palpable. has womack. Labs/imaging reviewed. Past medical history, past surgical history, family history, social history, allergy reviewed and noted as below Family hx: no hx of CKD. Rest non-contributory renao sono repeat: WNL Objective - Vital Signs/Intake and Output Vital Signs (last 24 hours): Temp Pulse Resp BP Pulse Ox 98.2 F 84 20 143/71 95 10/21/17 15:17 10/21/17 15:17 10/21/17 15:17 10/21/17 15:17 10/21/17 15:17 Intake and Output: 10/21/17 10/21/17 06:59 18:59 Intake Total 1600 800 Output Total 900 500 Balance 700 300 - Medications Medications: Current Medications Acetaminophen (Tylenol 325mg Tab) 650 mg PO Q6 PRN PRN Reason: Pain, moderate (4-7) Last Admin: 10/14/17 22:27 Dose: 650 mg Sodium Chloride (Sodium Chloride 0.9%) 1,000 mls @ 100 mls/hr IV .Q10H [facility] Last Admin: 10/21/17 09:14 Dose: 100 mls/hr Insulin Aspart (Novolog) 0 unit SC ACHS [facility] PRN Reason: Protocol Last Admin: 10/21/17 13:12 Dose: 2 unit Tamsulosin HCl (Flomax) 0.4 mg PO DAILY [facility] Last Admin: 10/21/17 09:14 Dose: 0.4 mg - Labs Labs: 10/19/17 08:50 10/21/17 07:10 PT 13.1 SECONDS (9.7-12.2) H 10/19/17 08:50 INR 1.2 10/19/17 08:50 APTT 34 SECONDS (21-34) 10/19/17 08:50
--- NOTE | 2017-10-22 00:18 | CP.PCM.PN ---
Subjective - Date & Time of Evaluation Date of Evaluation: 10/21/17 Time of Evaluation: 09:55 - Subjective Subjective: Patient seen and evaluated Denies chest pain and dyspnea Normal EF and normal stress test Continue current meds Physical Exam - Head Exam Head Exam: NORMAL INSPECTION - Eye Exam Eye Exam: Normal appearance - ENT Exam ENT Exam: Mucous Membranes Moist - Respiratory Exam Respiratory Exam: Clear to Auscultation Bilateral, NORMAL BREATHING PATTERN - Cardiovascular Exam Cardiovascular Exam: REGULAR RHYTHM, +S1, +S2 - GI/Abdominal Exam GI & Abdominal Exam: Normal Bowel Sounds, Soft - Extremities Exam Extremities exam: Positive for: normal inspection Objective - Vital Signs/Intake and Output Vital Signs (last 24 hours): Temp Pulse Resp BP Pulse Ox 98.2 F 88 20 143/71 95 10/21/17 15:17 10/21/17 16:54 10/21/17 15:17 10/21/17 15:17 10/21/17 15:17 Intake and Output: 10/21/17 10/22/17 18:59 06:59 Intake Total 800 800 Output Total 500 750 Balance 300 50 - Medications Medications: Current Medications Acetaminophen (Tylenol 325mg Tab) 650 mg PO Q6 PRN PRN Reason: Pain, moderate (4-7) Last Admin: 10/14/17 22:27 Dose: 650 mg Sodium Chloride (Sodium Chloride 0.9%) 1,000 mls @ 100 mls/hr IV .Q10H [facility] Last Admin: 10/21/17 17:49 Dose: 100 mls/hr Insulin Aspart (Novolog) 0 unit SC ACHS [facility] PRN Reason: Protocol Last Admin: 10/21/17 21:24 Dose: Not Given Tamsulosin HCl (Flomax) 0.4 mg PO DAILY [facility] Last Admin: 10/21/17 09:14 Dose: 0.4 mg - Labs Labs: 10/19/17 08:50 10/21/17 07:10 PT 13.1 SECONDS (9.7-12.2) H 10/19/17 08:50 INR 1.2 10/19/17 08:50 APTT 34 SECONDS (21-34) 10/19/17 08:50 Assessment and Plan - Assessment and Plan (Free Text) Assessment: HTN s/p Obstructive Uropathy Cardiac arrhythmias
[2017-10-22] MEDS: (Novolog) Insulin Aspart, Recombinant 100 u/ml 10 ml vial SC SCH ×4 (08:40→21:26)
[2017-10-22] MEDS: Sodium Chloride 0.9% 1,000 ML IV SCH (10:19)
--- NOTE | 2017-10-22 11:40 | CP.PCM.PN ---
Subjective - Date & Time of Evaluation Date of Evaluation: 10/22/17 Time of Evaluation: 10:00 - Subjective Subjective: Follow up Nephrology Consultation: Assessment: Stable Acute Kidney Injury (N17.9) likely due to bladder outlet obstruction with b/l hydronephrosis: resolved Active smoker Hyponatremia, acidosis, Hyperkalemia: resolved anemia Plan renal function close to normal again with IVF BP controlled started flomax urology eval appreciated. plan for cystoscopy today cardiology evaluated for pause on tele. stress test and echo done Dose meds/antibiotics for improved GFR. Glycemic control Further work up/management as per primary team pt advised to stop smoking pt stable for d/c from renal perspective, when planned. Thanks for allowing me to participate in care of your patient. Will follow patient with you. Please call if any Qs. Dr Kieran Espinosa Office: [phone] HPI: Pt is a 72 M without much medical hx but active smoker presented with complaints of unable to urinate for 1 week. he had nocturia prior to that but he denies other symptoms of LUTS he was found to have urine retention and womack catheter drained ~ 2 L urine soon after. Denies OTC/herbal meds or NSAIDs No recent iodinated contrast exposure. No obvious episodes of low BP. ROS: Cardiovascular: No chest pain. Pulmonary: No shortness of breath Gastrointestinal: denies abdominal pain No nausea. No vomiting. Genitourinary: none now All other negative Physical Examination: General Appearance: Comfortable, in no acute respiratory distress, co-operative . Vitals reviewed and noted as below Head; Atraumatic, normocephalic ENT: no ulcers no thrush. Tongue is midline. Oropharynx: no rash or ulcers. EYES: Pupils are equal, round and reactive to light accommodation. Eye muscles and extraocular movement intact. Sclera is anicteric. Neck; supple no lymphadenopathy, no thyromegaly or bruit Lungs: Normal respiratory rate/effort. Breath sounds bilateral equal and clear Heart: Normal rate. s1s2 normal. No rub or gallop. Extremities: no edema. No varicose veins Neurological: Patient is alert, awake and oriented to person, place and time. No focal deficit. Strength bilateral appropriate and equal Skin: Warm and dry. Normal turgor. No rash. Palpitation: Normal elasticity for age Abdomen: Abdomen is soft. Bowel sounds +. There is no abdominal tenderness, no guarding/rigidity no organomegaly Psych: normal insight and normal affect/mood MSK: no joint tenderness or swelling. Digits and nails normal, no deformity : kidney or bladder not palpable. has womack. Labs/imaging reviewed. Past medical history, past surgical history, family history, social history, allergy reviewed and noted as below Family hx: no hx of CKD. Rest non-contributory renao sono repeat: WNL Objective - Vital Signs/Intake and Output Vital Signs (last 24 hours): Temp Pulse Resp BP Pulse Ox 98.3 F 81 20 137/72 95 10/22/17 08:00 10/22/17 08:00 10/22/17 08:00 10/22/17 08:00 10/22/17 08:00 Intake and Output: 10/22/17 10/22/17 06:59 18:59 Intake Total 1600 Output Total 1450 Balance 150 - Medications Medications: Current Medications Acetaminophen (Tylenol 325mg Tab) 650 mg PO Q6 PRN PRN Reason: Pain, moderate (4-7) Last Admin: 10/14/17 22:27 Dose: 650 mg Enoxaparin Sodium (Lovenox) 40 mg SC DAILY [facility] Sodium Chloride (Sodium Chloride 0.9%) 1,000 mls @ 100 mls/hr IV .Q10H [facility] Last Admin: 10/22/17 10:19 Dose: 100 mls/hr Insulin Aspart (Novolog) 0 unit SC ACHS [facility] PRN Reason: Protocol Last Admin: 10/22/17 08:40 Dose: Not Given Tamsulosin HCl (Flomax) 0.4 mg PO DAILY [facility] Last Admin: 10/22/17 10:19 Dose: 0.4 mg - Labs Labs: 10/19/17 08:50 10/21/17 07:10 PT 13.1 SECONDS (9.7-12.2) H 10/19/17 08:50 INR 1.2 10/19/17 08:50 APTT 34 SECONDS (21-34) 10/19/17 08:50
[2017-10-22] MEDS ORDERED: Propofol 10 mg/ml Inj (20 ML) ONE (13:27)
[2017-10-22] MEDS ORDERED: Midazolam 2 MG/2 ML VIAL ONE (13:27)
[2017-10-22] MEDS ORDERED: Lactated Ringer's 1,000 ML IV ONE (13:30)
[2017-10-22] MEDS ORDERED: Ciprofloxacin 400mg/200ml D5W 400 MG/200 ML BAG IVPB ONE (13:42)
--- NOTE | 2017-10-22 16:45 | CP.PCM.PCO ---
Physician Communication Note - Physician Communication Note Physician Communication Note: Pt is medically cleared for cystoscopy
--- NOTE | 2017-10-22 16:46 | CP.PCM.PCO ---
Physician Communication Note - Physician Communication Note Physician Communication Note: Pt is medically cleared for TURP
--- NOTE | 2017-10-22 16:46 | CP.PCM.PN ---
Subjective - Date & Time of Evaluation Date of Evaluation: 10/22/17 Time of Evaluation: 16:45 - Subjective Subjective: Pt seen and examined S/P Cystoscopy Objective - Vital Signs/Intake and Output Vital Signs (last 24 hours): Temp Pulse Resp BP Pulse Ox 97.2 F L 78 20 125/72 95 10/22/17 15:35 10/22/17 16:15 10/22/17 15:35 10/22/17 15:35 10/22/17 15:35 Intake and Output: 10/22/17 10/22/17 06:59 18:59 Intake Total 1600 905 Output Total 1450 1000 Balance 150 -95 - Medications Medications: Current Medications Acetaminophen (Tylenol 325mg Tab) 650 mg PO Q6 PRN PRN Reason: Pain, moderate (4-7) Last Admin: 10/14/17 22:27 Dose: 650 mg Albuterol/Ipratropium (Duoneb 3 Mg/0.5 Mg (3 Ml) Ud) 3 ml INH RQ6 [facility] Enoxaparin Sodium (Lovenox) 40 mg SC DAILY [facility] Guaifenesin (Robitussin) 200 mg PO Q4H PRN PRN Reason: Cough and congestion Sodium Chloride (Sodium Chloride 0.9%) 1,000 mls @ 100 mls/hr IV .Q10H [facility] Last Admin: 10/22/17 10:19 Dose: 100 mls/hr Insulin Aspart (Novolog) 0 unit SC ACHS [facility] PRN Reason: Protocol Last Admin: 10/22/17 12:32 Dose: Not Given Tamsulosin HCl (Flomax) 0.4 mg PO DAILY [facility] Last Admin: 10/22/17 10:19 Dose: 0.4 mg - Labs Labs: 10/19/17 08:50 10/21/17 07:10 PT 13.1 SECONDS (9.7-12.2) H 10/19/17 08:50 INR 1.2 10/19/17 08:50 APTT 34 SECONDS (21-34) 10/19/17 08:50 - Head Exam Head Exam: NORMAL INSPECTION - Eye Exam Eye Exam: Normal appearance - ENT Exam ENT Exam: Mucous Membranes Moist - Respiratory Exam Respiratory Exam: Clear to Ausculation Bilateral - Cardiovascular Exam Cardiovascular Exam: REGULAR RHYTHM - GI/Abdominal Exam GI & Abdominal Exam: Soft, Normal Bowel Sounds - Neurological Exam Neurological Exam: Alert, Oriented x3 - Psychiatric Exam Psychiatric exam: Normal Affect, Normal Mood Assessment and Plan - Assessment and Plan (Free Text) Assessment: KIMBERLY with hydronephrosis - resolved Bladder Outlet obstruction due to BPH COPD DM RBBB Cardiac workup is negative Patient is medically cleared for TURP in AM Accucheck Insulin coverage Flomax COPD is at baseline DVT/GI prophalaxis
[2017-10-22] MEDS ORDERED: Enoxaparin 40 mg Syringe SC SCH (18:00)
[2017-10-22] MEDS: Albuterol-Ipratrop 3 mg / 0.5 (3 ml) UD INH SCH (20:16)
[2017-10-22] MEDS: Ciprofloxacin 400mg/200ml D5W 400 MG/200 ML BAG IVPB SCH (21:25)
--- NOTE | 2017-10-23 01:08 | CP.PCM.PN ---
Subjective - Date & Time of Evaluation Date of Evaluation: 10/22/17 Time of Evaluation: 06:45 - Subjective Subjective: Patient seen and evaluated Denies chest pain and dyspnea Physical Exam - Head Exam Head Exam: NORMAL INSPECTION - Eye Exam Eye Exam: Normal appearance - ENT Exam ENT Exam: Mucous Membranes Moist - Respiratory Exam Respiratory Exam: Clear to Auscultation Bilateral, NORMAL BREATHING PATTERN - Cardiovascular Exam Cardiovascular Exam: REGULAR RHYTHM, +S1, +S2 - GI/Abdominal Exam GI & Abdominal Exam: Normal Bowel Sounds, Soft - Extremities Exam Extremities exam: Positive for: normal inspection Objective - Vital Signs/Intake and Output Vital Signs (last 24 hours): Temp Pulse Resp BP Pulse Ox 97.2 F L 79 20 125/72 95 10/22/17 15:35 10/22/17 20:17 10/22/17 15:35 10/22/17 15:35 10/22/17 15:35 Intake and Output: 10/22/17 10/23/17 18:59 06:59 Intake Total 1205 200 Output Total 1000 700 Balance 205 -500 - Medications Medications: Current Medications Acetaminophen (Tylenol 325mg Tab) 650 mg PO Q6 PRN PRN Reason: Pain, moderate (4-7) Last Admin: 10/14/17 22:27 Dose: 650 mg Albuterol/Ipratropium (Duoneb 3 Mg/0.5 Mg (3 Ml) Ud) 3 ml INH RQ6 [facility] Last Admin: 10/22/17 20:16 Dose: 3 ml Enoxaparin Sodium (Lovenox) 40 mg SC DAILY [facility] Guaifenesin (Robitussin) 200 mg PO Q4H PRN PRN Reason: Cough and congestion Sodium Chloride (Sodium Chloride 0.9%) 1,000 mls @ 100 mls/hr IV .Q10H [facility] Last Admin: 10/22/17 10:19 Dose: 100 mls/hr Ciprofloxacin (Cipro 400mg/200ml Dsw) 400 mg in 200 mls @ 133 mls/hr IVPB Q12H [facility] Last Admin: 10/22/17 21:25 Dose: 133 mls/hr Insulin Aspart (Novolog) 0 unit SC ACHS [facility] PRN Reason: Protocol Last Admin: 10/22/17 21:26 Dose: Not Given Tamsulosin HCl (Flomax) 0.4 mg PO DAILY [facility] Last Admin: 10/22/17 10:19 Dose: 0.4 mg - Labs Labs: 10/19/17 08:50 10/21/17 07:10 PT 13.1 SECONDS (9.7-12.2) H 10/19/17 08:50 INR 1.2 10/19/17 08:50 APTT 34 SECONDS (21-34) 10/19/17 08:50 Assessment and Plan - Assessment and Plan (Free Text) Assessment: HTN s/p Obstructive Uropathy Cardiac arrhythmias
[2017-10-23] MEDS: Albuterol-Ipratrop 3 mg / 0.5 (3 ml) UD INH SCH ×4 (01:11→21:05)
[2017-10-23] MEDS: (Novolog) Insulin Aspart, Recombinant 100 u/ml 10 ml vial SC SCH ×4 (07:00→22:04)
[2017-10-23 07:07] LABS: BASO # 0.1 K/uL (0.0-0.2); BASO % 0.8 % (0.0-2.0); EOS # 0.3 K/uL (0.0-0.7); HEMOGLOBIN 10.7 g/dL (12.0-18.0); LYMPH # 1.5 K/uL (1.0-4.3); LYMPH % 23.4 % (20.0-40.0); MEAN CELL VOLUME 81.9 fL (80.0-94.0); MEAN CORPUSCULAR HEMOGLOBIN 26.9 pg (27.0-31.0); MEAN CORPUSCULAR HGB CONC 32.8 g/dL (33.0-37.0); MEAN PLATELET VOLUME 9.1 fL (7.2-11.7); MONO # 0.6 K/uL (0.0-0.8); MONO % 9.5 % (0.0-10.0); NEUT # 4.1 K/uL (1.8-7.0); NEUT % 62.3 % (50.0-75.0); RBC 3.97 Mil/uL (4.40-5.90); RED CELL DISTRIBUTION WIDTH 16.2 % (11.5-14.5); WHITE BLOOD COUNT 6.5 K/uL (4.8-10.8)
[2017-10-23 07:39] LABS: BLOOD UREA NITROGEN 17 mg/dL (9-20); CALCIUM 7.8 mg/dl (8.6-10.4); GFR AFRICAN-AMERICAN > 60; GFR NON-AFRICAN AMERICAN > 60
[2017-10-23] MEDS ORDERED: Lactated Ringer's 1,000 ML IV ONE ×2 (07:49)
[2017-10-23] MEDS ORDERED: Midazolam 2 MG/2 ML VIAL ONE (08:03)
[2017-10-23] MEDS ORDERED: Morphine 1 mg/ml preservative-free Inj(Duramorph) ONE (08:06)
[2017-10-23] MEDS ORDERED: Propofol 10 mg/ml Inj (20 ML) ONE ×2 (08:21→08:53)
[2017-10-23] MEDS ORDERED: Gentamicin 80 mg in 0.9% NS 80 MG/100 ML BAG IVPB ONE (08:32)
--- NOTE | 2017-10-23 08:45 | OP ---
PROCEDURE DATE: PREOPERATIVE DIAGNOSES: Acute urinary retention, renal failure due to outlet obstruction, prostatic hypertrophy. POSTOPERATIVE DIAGNOSIS: Large prostate causing obstruction of the prostatic urethra with old sign of obstruction. PROCEDURE: Cysto and insertion of Masterson catheter. DESCRIPTION OF PROCEDURE: While the patient in lithotomy position and after starting sedation, genitalia prepped and draped in sterile fashion. The patient given Cipro IV. Masterson was removed before. Inspecting the urethra revealed normal urethra. 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 The prostate is still large, causing obstruction of the prostatic urethra with large, massive prostate on the left side, coming to the midline and obstructing. On the bladder neck, there is also some obstruction from median lobe. The bladder is heavily trabeculated with fascicular and multiple honeycomb-appearing mucosa. Lump of bullous edema due to the Masterson catheter. Around the bladder, there was no evidence of any tumor. The patient tolerated the procedure well. Measuring the prostatic urethra, it is about 5 cm. The scope removed. A #18 Masterson inserted and patient will be going for TURP. Patient has medical cardiology clearance. Ryan Crawford MD
[2017-10-23] MEDS ORDERED: Succinylcholine Chloride 20 mg/ml Syr (5 ml) IV ONE (09:38)
[2017-10-23] MEDS ORDERED: Neostigmine Methylsulfate 3mg/3ml Syringe IV ONE (09:38)
[2017-10-23] MEDS ORDERED: Rocuronium 10 mg/ml (10 ml) ONE (09:38)
[2017-10-23] MEDS ORDERED: HYDROmorphone 0.5 mg/0.5 ml ISec IVP PRN (10:00)
[2017-10-23] MEDS: Ciprofloxacin 400mg/200ml D5W 400 MG/200 ML BAG IVPB SCH ×2 (10:35→22:05)
--- NOTE | 2017-10-23 13:49 | CP.PCM.PN ---
Subjective - Date & Time of Evaluation Date of Evaluation: 10/23/17 Time of Evaluation: 13:48 - Subjective Subjective: Follow up Nephrology Consultation: Assessment: Stable Acute Kidney Injury (N17.9) likely due to bladder outlet obstruction with b/l hydronephrosis: resolved Active smoker Hyponatremia, acidosis, Hyperkalemia: resolved anemia s/p PURP 10/23/17 Plan renal function close to normal again with IVF BP controlled continue with flomax urology eval appreciated. cardiology evaluated for pause on tele. stress test and echo done repeat labs in AM Dose meds/antibiotics for improved GFR. Glycemic control Further work up/management as per primary team pt advised to stop smoking pt stable for d/c from renal perspective, when planned. Thanks for allowing me to participate in care of your patient. Will follow patient with you. Please call if any Qs. d/w team Dr Kieran Espinosa Office: [phone] HPI: Pt is a 72 M without much medical hx but active smoker presented with complaints of unable to urinate for 1 week. he had nocturia prior to that but he denies other symptoms of LUTS he was found to have urine retention and womack catheter drained ~ 2 L urine soon after. Denies OTC/herbal meds or NSAIDs No recent iodinated contrast exposure. No obvious episodes of low BP. ROS: Cardiovascular: No chest pain. Pulmonary: No shortness of breath Gastrointestinal: denies abdominal pain No nausea. No vomiting. All other negative Physical Examination: General Appearance: Comfortable, in no acute respiratory distress, co-operative . Vitals reviewed and noted as below Head; Atraumatic, normocephalic ENT: no ulcers no thrush. Tongue is midline. Oropharynx: no rash or ulcers. EYES: Pupils are equal, round and reactive to light accommodation. Eye muscles and extraocular movement intact. Sclera is anicteric. Neck; supple no lymphadenopathy, no thyromegaly or bruit Lungs: Normal respiratory rate/effort. Breath sounds bilateral equal and clear Heart: Normal rate. s1s2 normal. No rub or gallop. Extremities: no edema. No varicose veins Neurological: Patient is alert, awake and oriented to person, place and time. No focal deficit. Strength bilateral appropriate and equal Skin: Warm and dry. Normal turgor. No rash. Palpitation: Normal elasticity for age Abdomen: Abdomen is soft. Bowel sounds +. There is no abdominal tenderness, no guarding/rigidity no organomegaly Psych: normal insight and normal affect/mood MSK: no joint tenderness or swelling. Digits and nails normal, no deformity : kidney or bladder not palpable. has womack. Labs/imaging reviewed. Past medical history, past surgical history, family history, social history, allergy reviewed and noted as below Family hx: no hx of CKD. Rest non-contributory renao sono repeat: WNL Objective - Vital Signs/Intake and Output Vital Signs (last 24 hours): Temp Pulse Resp BP Pulse Ox 97.7 F 93 H 16 146/75 95 10/23/17 11:49 10/23/17 11:49 10/23/17 11:49 10/23/17 11:49 10/23/17 11:49 Intake and Output: 10/23/17 10/23/17 06:59 18:59 Intake Total 1000 450 Output Total 1300 250 Balance -300 200 - Medications Medications: Current Medications Acetaminophen (Tylenol 325mg Tab) 650 mg PO Q6 PRN PRN Reason: Pain, moderate (4-7) Last Admin: 10/14/17 22:27 Dose: 650 mg Albuterol/Ipratropium (Duoneb 3 Mg/0.5 Mg (3 Ml) Ud) 3 ml INH RQ6 [facility] Last Admin: 10/23/17 08:34 Dose: Not Given Enoxaparin Sodium (Lovenox) 40 mg SC DAILY [facility] Guaifenesin (Robitussin) 200 mg PO Q4H PRN PRN Reason: Cough and congestion Sodium Chloride (Sodium Chloride 0.9%) 1,000 mls @ 100 mls/hr IV .Q10H [facility] Last Admin: 10/22/17 10:19 Dose: 100 mls/hr Ciprofloxacin (Cipro 400mg/200ml Dsw) 400 mg in 200 mls @ 133 mls/hr IVPB Q12H [facility] Last Admin: 10/23/17 10:35 Dose: 200 mls Insulin Aspart (Novolog) 0 unit SC ACHS [facility] PRN Reason: Protocol Last Admin: 10/23/17 10:46 Dose: Not Given Tamsulosin HCl (Flomax) 0.4 mg PO DAILY [facility] Last Admin: 10/23/17 10:45 Dose: Not Given - Labs Labs: 10/23/17 06:59 10/23/17 06:59 PT 13.1 SECONDS (9.7-12.2) H 10/19/17 08:50 INR 1.2 10/19/17 08:50 APTT 34 SECONDS (21-34) 10/19/17 08:50
--- NOTE | 2017-10-23 20:30 | CP.PCM.PN ---
Subjective - Date & Time of Evaluation Date of Evaluation: 10/23/17 Time of Evaluation: 20:30 - Subjective Subjective: Seen and examined No events overnight Objective - Vital Signs/Intake and Output Vital Signs (last 24 hours): Temp Pulse Resp BP Pulse Ox 97.7 F 85 20 116/69 95 10/23/17 15:00 10/23/17 16:00 10/23/17 15:00 10/23/17 15:00 10/23/17 15:00 Intake and Output: 10/23/17 10/24/17 18:59 06:59 Intake Total 1900 Output Total 1250 Balance 650 - Medications Medications: Current Medications Acetaminophen (Tylenol 325mg Tab) 650 mg PO Q6 PRN PRN Reason: Pain, moderate (4-7) Last Admin: 10/14/17 22:27 Dose: 650 mg Albuterol/Ipratropium (Duoneb 3 Mg/0.5 Mg (3 Ml) Ud) 3 ml INH RQ6 [facility] Last Admin: 10/23/17 14:07 Dose: Not Given Enoxaparin Sodium (Lovenox) 40 mg SC DAILY [facility] Guaifenesin (Robitussin) 200 mg PO Q4H PRN PRN Reason: Cough and congestion Sodium Chloride (Sodium Chloride 0.9%) 1,000 mls @ 100 mls/hr IV .Q10H [facility] Last Admin: 10/22/17 10:19 Dose: 100 mls/hr Ciprofloxacin (Cipro 400mg/200ml Dsw) 400 mg in 200 mls @ 133 mls/hr IVPB Q12H [facility] Last Admin: 10/23/17 10:35 Dose: 200 mls Insulin Aspart (Novolog) 0 unit SC ACHS [facility] PRN Reason: Protocol Last Admin: 10/23/17 17:35 Dose: 2 unit Tamsulosin HCl (Flomax) 0.4 mg PO DAILY [facility] Last Admin: 10/23/17 10:45 Dose: Not Given - Labs Labs: 10/23/17 06:59 10/23/17 06:59 PT 13.1 SECONDS (9.7-12.2) H 10/19/17 08:50 INR 1.2 10/19/17 08:50 APTT 34 SECONDS (21-34) 10/19/17 08:50 - Head Exam Head Exam: NORMAL INSPECTION - Eye Exam Eye Exam: Normal appearance - ENT Exam ENT Exam: Mucous Membranes Moist - Respiratory Exam Respiratory Exam: Clear to Ausculation Bilateral - Cardiovascular Exam Cardiovascular Exam: REGULAR RHYTHM, +S1, +S2 - GI/Abdominal Exam GI & Abdominal Exam: Soft, Normal Bowel Sounds - Neurological Exam Neurological Exam: Alert, Oriented x3 Assessment and Plan - Assessment and Plan (Free Text) Assessment: KIMBERLY with hydronephrosis - resolved Bladder Outlet obstruction due to BPH COPD DM RBBB Cardiac workup is negative Accucheck Insulin coverage Flomax COPD is at baseline Continue supportive care DVT/GI prophalaxis
[2017-10-24] MEDS: Albuterol-Ipratrop 3 mg / 0.5 (3 ml) UD INH SCH ×4 (02:14→20:21)
[2017-10-24 07:22] LABS: BASO # 0.1 K/uL (0.0-0.2); BASO % 0.6 % (0.0-2.0); EOS # 0.3 K/uL (0.0-0.7); HEMOGLOBIN 10.6 g/dL (12.0-18.0); LYMPH # 1.4 K/uL (1.0-4.3); LYMPH % 15.4 % (20.0-40.0); MEAN CELL VOLUME 82.6 fL (80.0-94.0); MEAN CORPUSCULAR HEMOGLOBIN 27.2 pg (27.0-31.0); MEAN CORPUSCULAR HGB CONC 32.9 g/dL (33.0-37.0); MEAN PLATELET VOLUME 9.2 fL (7.2-11.7); MONO # 0.7 K/uL (0.0-0.8); MONO % 7.2 % (0.0-10.0); NEUT # 6.9 K/uL (1.8-7.0); NEUT % 73.8 % (50.0-75.0); RBC 3.89 Mil/uL (4.40-5.90); RED CELL DISTRIBUTION WIDTH 16.4 % (11.5-14.5); WHITE BLOOD COUNT 9.3 K/uL (4.8-10.8)
[2017-10-24 08:15] LABS: BLOOD UREA NITROGEN 17 mg/dL (9-20); CALCIUM 7.8 mg/dl (8.6-10.4); GFR AFRICAN-AMERICAN > 60; GFR NON-AFRICAN AMERICAN 60
[2017-10-24] MEDS ORDERED: Bisacodyl 5mg EC Tab PO SCH (08:30)
[2017-10-24] MEDS: (Novolog) Insulin Aspart, Recombinant 100 u/ml 10 ml vial SC SCH ×4 (08:35→21:50)
[2017-10-24] MEDS: Ciprofloxacin 400mg/200ml D5W 400 MG/200 ML BAG IVPB SCH ×2 (10:32→21:51)
[2017-10-24] MEDS: Bisacodyl 5mg EC Tab PO SCH (10:35)
--- NOTE | 2017-10-24 14:03 | OP ---
PROCEDURE DATE: 10/23/2017 PREOPERATIVE DIAGNOSES: Urinary retention; prostatic hypertrophy; elevated prostate-specific antigen; and acute renal failure, improved after drainage. POSTOPERATIVE DIAGNOSES: Urinary retention; prostatic hypertrophy; elevated prostate-specific antigen; and acute renal failure, improved after drainage. PROCEDURE: Transurethral resection of the prostate. ANESTHESIA: Attempt to give spinal anesthesia failed, so endotracheal tube was done and the patient placed under anesthesia. DESCRIPTION OF PROCEDURE: While the patient in lithotomy position and after starting general anesthesia, genitalia prepped and draped in sterile fashion. The patient given antibiotic preop, continued the Cipro and I added 80 mg of gentamicin. Urethra dilated and introducing the 25 resectoscope under direct vision to the bladder irrigating some of the old clots done. The prostate itself showed necrotic material on the trigone and obstruction due to the prostate. Deep groove made at 11 o'clock, another deep groove at 1 o'clock, all the lateral tissue resected, some of the roof resected. Down the floor, all the tissue down between from the veru to the bladder neck resected. Some bleeders coagulated. All tissue irrigated out. At the end of the procedure, while the scope in the veru, you can see the bladder neck; after seeing the bladder, the scope removed, putting pressure showed good stream, #22 three-way Masterson inserted, irrigation mild pinkish. The patient started on CBI and transferred to the recovery room in stable condition. Blood loss less than 10 mL. Ryan Crawford MD
--- NOTE | 2017-10-24 15:28 | CP.PCM.PN ---
Subjective - Date & Time of Evaluation Date of Evaluation: 10/24/17 Time of Evaluation: 15:28 - Subjective Subjective: Follow up Nephrology Consultation: Assessment: Stable Acute Kidney Injury (N17.9) likely due to bladder outlet obstruction with b/l hydronephrosis: resolved Active smoker Hyponatremia, acidosis, Hyperkalemia: resolved anemia s/p PURP 10/23/17 Hyponatremia Plan renal function close to normal again with IVF BP controlled continue with flomax urology eval appreciated. cardiology evaluated for pause on tele. stress test and echo done Dose meds/antibiotics for improved GFR. Glycemic control Further work up/management as per primary team pt advised to stop smoking pt stable for d/c from renal perspective, when planned. Thanks for allowing me to participate in care of your patient. Will follow patient with you. Please call if any Qs. d/w team Dr Kieran Espinosa Office: [phone] HPI: Pt is a 72 M without much medical hx but active smoker presented with complaints of unable to urinate for 1 week. he had nocturia prior to that but he denies other symptoms of LUTS he was found to have urine retention and womack catheter drained ~ 2 L urine soon after. Denies OTC/herbal meds or NSAIDs No recent iodinated contrast exposure. No obvious episodes of low BP. ROS: Cardiovascular: No chest pain. Pulmonary: No shortness of breath Gastrointestinal: denies abdominal pain No nausea. No vomiting. All other negative Physical Examination: General Appearance: Comfortable, in no acute respiratory distress, co-operative . Vitals reviewed and noted as below Head; Atraumatic, normocephalic ENT: no ulcers no thrush. Tongue is midline. Oropharynx: no rash or ulcers. EYES: Pupils are equal, round and reactive to light accommodation. Eye muscles and extraocular movement intact. Sclera is anicteric. Neck; supple no lymphadenopathy, no thyromegaly or bruit Lungs: Normal respiratory rate/effort. Breath sounds bilateral equal and clear Heart: Normal rate. s1s2 normal. No rub or gallop. Extremities: no edema. No varicose veins Neurological: Patient is alert, awake and oriented to person, place and time. No focal deficit. Strength bilateral appropriate and equal Skin: Warm and dry. Normal turgor. No rash. Palpitation: Normal elasticity for age Abdomen: Abdomen is soft. Bowel sounds +. There is no abdominal tenderness, no guarding/rigidity no organomegaly Psych: normal insight and normal affect/mood MSK: no joint tenderness or swelling. Digits and nails normal, no deformity : kidney or bladder not palpable. has womack. Labs/imaging reviewed. Past medical history, past surgical history, family history, social history, allergy reviewed and noted as below Family hx: no hx of CKD. Rest non-contributory renao sono repeat: WNL Objective - Vital Signs/Intake and Output Vital Signs (last 24 hours): Temp Pulse Resp BP Pulse Ox 98.5 F 97 H 18 133/75 94 L 10/24/17 08:20 10/24/17 08:20 10/24/17 08:20 10/24/17 08:20 10/24/17 08:20 Intake and Output: 10/24/17 10/24/17 06:59 18:59 Intake Total 1600 3000 Output Total 1200 4240 Balance 400 -1240 - Medications Medications: Current Medications Acetaminophen (Tylenol 325mg Tab) 650 mg PO Q6 PRN PRN Reason: Pain, moderate (4-7) Last Admin: 10/14/17 22:27 Dose: 650 mg Albuterol/Ipratropium (Duoneb 3 Mg/0.5 Mg (3 Ml) Ud) 3 ml INH RQ6 [facility] Last Admin: 10/24/17 13:19 Dose: Not Given Bisacodyl (Dulcolax) 10 mg PO DAILY [facility] Last Admin: 10/24/17 10:35 Dose: Not Given Enoxaparin Sodium (Lovenox) 40 mg SC DAILY [facility] Guaifenesin (Robitussin) 200 mg PO Q4H PRN PRN Reason: Cough and congestion Ciprofloxacin (Cipro 400mg/200ml Dsw) 400 mg in 200 mls @ 133 mls/hr IVPB Q12H [facility] Last Admin: 10/24/17 10:32 Dose: 133 mls/hr Insulin Aspart (Novolog) 0 unit SC ACHS [facility] PRN Reason: Protocol Last Admin: 10/24/17 12:01 Dose: 2 unit Tamsulosin HCl (Flomax) 0.4 mg PO DAILY [facility] Last Admin: 10/24/17 10:32 Dose: 0.4 mg - Labs Labs: 10/24/17 07:01 10/24/17 07:01 PT 13.1 SECONDS (9.7-12.2) H 10/19/17 08:50 INR 1.2 10/19/17 08:50 APTT 34 SECONDS (21-34) 10/19/17 08:50
--- NOTE | 2017-10-24 15:51 | CP.PCM.PN ---
Subjective - Date & Time of Evaluation Date of Evaluation: 10/24/17 Time of Evaluation: 15:51 - Subjective Subjective: Patient seen and examined Status post TURP Objective - Vital Signs/Intake and Output Vital Signs (last 24 hours): Temp Pulse Resp BP Pulse Ox 98.5 F 97 H 18 133/75 94 L 10/24/17 08:20 10/24/17 08:20 10/24/17 08:20 10/24/17 08:20 10/24/17 08:20 Intake and Output: 10/24/17 10/24/17 06:59 18:59 Intake Total 1600 3000 Output Total 1200 4240 Balance 400 -1240 - Medications Medications: Current Medications Acetaminophen (Tylenol 325mg Tab) 650 mg PO Q6 PRN PRN Reason: Pain, moderate (4-7) Last Admin: 10/14/17 22:27 Dose: 650 mg Albuterol/Ipratropium (Duoneb 3 Mg/0.5 Mg (3 Ml) Ud) 3 ml INH RQ6 [facility] Last Admin: 10/24/17 13:19 Dose: Not Given Bisacodyl (Dulcolax) 10 mg PO DAILY [facility] Last Admin: 10/24/17 10:35 Dose: Not Given Enoxaparin Sodium (Lovenox) 40 mg SC DAILY [facility] Guaifenesin (Robitussin) 200 mg PO Q4H PRN PRN Reason: Cough and congestion Ciprofloxacin (Cipro 400mg/200ml Dsw) 400 mg in 200 mls @ 133 mls/hr IVPB Q12H [facility] Last Admin: 10/24/17 10:32 Dose: 133 mls/hr Insulin Aspart (Novolog) 0 unit SC ACHS [facility] PRN Reason: Protocol Last Admin: 10/24/17 12:01 Dose: 2 unit Tamsulosin HCl (Flomax) 0.4 mg PO DAILY [facility] Last Admin: 10/24/17 10:32 Dose: 0.4 mg - Labs Labs: 10/24/17 07:01 10/24/17 07:01 PT 13.1 SECONDS (9.7-12.2) H 10/19/17 08:50 INR 1.2 10/19/17 08:50 APTT 34 SECONDS (21-34) 10/19/17 08:50 - Head Exam Head Exam: NORMAL INSPECTION - Eye Exam Eye Exam: Normal appearance - ENT Exam ENT Exam: Mucous Membranes Moist - Respiratory Exam Respiratory Exam: Clear to Ausculation Bilateral - Cardiovascular Exam Cardiovascular Exam: REGULAR RHYTHM - GI/Abdominal Exam GI & Abdominal Exam: Soft, Normal Bowel Sounds - Extremities Exam Extremities Exam: Normal Inspection - Neurological Exam Neurological Exam: Alert, Oriented x3 Assessment and Plan - Assessment and Plan (Free Text) Assessment: KIMBERLY with hydronephrosis - resolved 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
[2017-10-25] MEDS: Albuterol-Ipratrop 3 mg / 0.5 (3 ml) UD INH SCH ×3 (01:18→21:51)
[2017-10-25] MEDS: (Novolog) Insulin Aspart, Recombinant 100 u/ml 10 ml vial SC SCH ×4 (08:30→22:07)
[2017-10-25] MEDS: Bisacodyl 5mg EC Tab PO SCH (09:34)
[2017-10-25] MEDS: guaiFENesin 200 mg/10 ml Syrup UD PO PRN (09:34)
[2017-10-25] MEDS: Ciprofloxacin 400mg/200ml D5W 400 MG/200 ML BAG IVPB SCH ×2 (11:00→22:06)
--- NOTE | 2017-10-25 17:11 | CP.PCM.PN ---
Subjective - Date & Time of Evaluation Date of Evaluation: 10/25/17 Time of Evaluation: 17:11 - Subjective Subjective: Patient seen and examined No events overnight Objective - Vital Signs/Intake and Output Vital Signs (last 24 hours): Temp Pulse Resp BP Pulse Ox 97.6 F 77 20 122/65 97 10/25/17 15:16 10/25/17 15:16 10/25/17 15:16 10/25/17 15:16 10/25/17 15:16 Intake and Output: 10/25/17 10/25/17 06:59 18:59 Intake Total 1120 800 Output Total 3500 1000 Balance -2380 -200 - Medications Medications: Current Medications Acetaminophen (Tylenol 325mg Tab) 650 mg PO Q6 PRN PRN Reason: Pain, moderate (4-7) Last Admin: 10/24/17 23:40 Dose: 650 mg Albuterol/Ipratropium (Duoneb 3 Mg/0.5 Mg (3 Ml) Ud) 3 ml INH RQ6 [facility] Last Admin: 10/25/17 08:15 Dose: Not Given Bisacodyl (Dulcolax) 10 mg PO DAILY [facility] Last Admin: 10/25/17 09:34 Dose: 10 mg Enoxaparin Sodium (Lovenox) 40 mg SC DAILY [facility] Guaifenesin (Robitussin) 200 mg PO Q4H PRN PRN Reason: Cough and congestion Last Admin: 10/25/17 09:34 Dose: 200 mg Ciprofloxacin (Cipro 400mg/200ml Dsw) 400 mg in 200 mls @ 133 mls/hr IVPB Q12H [facility] Last Admin: 10/25/17 11:00 Dose: 133 mls/hr Insulin Aspart (Novolog) 0 unit SC ACHS [facility] PRN Reason: Protocol Last Admin: 10/25/17 13:41 Dose: Not Given Tamsulosin HCl (Flomax) 0.4 mg PO DAILY [facility] Last Admin: 10/25/17 09:34 Dose: 0.4 mg - Labs Labs: 10/24/17 07:01 10/24/17 07:01 PT 13.1 SECONDS (9.7-12.2) H 10/19/17 08:50 INR 1.2 10/19/17 08:50 APTT 34 SECONDS (21-34) 10/19/17 08:50 - Head Exam Head Exam: NORMAL INSPECTION - Eye Exam Eye Exam: Normal appearance - ENT Exam ENT Exam: Mucous Membranes Moist - Respiratory Exam Respiratory Exam: Clear to Ausculation Bilateral - Cardiovascular Exam Cardiovascular Exam: REGULAR RHYTHM - GI/Abdominal Exam GI & Abdominal Exam: Soft, Normal Bowel Sounds - Extremities Exam Extremities Exam: Normal Inspection - Neurological Exam Neurological Exam: Alert, Oriented x3 Assessment and Plan - Assessment and Plan (Free Text) Assessment: KIMBERLY with hydronephrosis - resolved 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 Continue supportive care DVT/GI prophalaxis
--- NOTE | 2017-10-25 20:57 | CP.PCM.PN ---
Subjective - Date & Time of Evaluation Date of Evaluation: 10/23/17 Time of Evaluation: 09:20 - Subjective Subjective: Patient seen and evaluated S/P Cystoscopy No cardiac events HTN DM 2 S/P Obstructive uropathy Physical Exam - Head Exam Head Exam: NORMAL INSPECTION - Eye Exam Eye Exam: Normal appearance - ENT Exam ENT Exam: Mucous Membranes Moist - Respiratory Exam Respiratory Exam: Clear to Auscultation Bilateral, NORMAL BREATHING PATTERN - Cardiovascular Exam Cardiovascular Exam: REGULAR RHYTHM, +S1, +S2 - GI/Abdominal Exam GI & Abdominal Exam: Normal Bowel Sounds, Soft - Extremities Exam Extremities exam: Positive for: normal inspection Objective - Vital Signs/Intake and Output Vital Signs (last 24 hours): Temp Pulse Resp BP Pulse Ox 97.6 F 77 20 122/65 97 10/25/17 15:16 10/25/17 15:16 10/25/17 15:16 10/25/17 15:16 10/25/17 15:16 Intake and Output: 10/25/17 10/26/17 18:59 06:59 Intake Total 800 Output Total 1000 Balance -200 - Medications Medications: Current Medications Acetaminophen (Tylenol 325mg Tab) 650 mg PO Q6 PRN PRN Reason: Pain, moderate (4-7) Last Admin: 10/24/17 23:40 Dose: 650 mg Albuterol/Ipratropium (Duoneb 3 Mg/0.5 Mg (3 Ml) Ud) 3 ml INH RQ6 [facility] Last Admin: 10/25/17 08:15 Dose: Not Given Bisacodyl (Dulcolax) 10 mg PO DAILY [facility] Last Admin: 10/25/17 09:34 Dose: 10 mg Enoxaparin Sodium (Lovenox) 40 mg SC DAILY [facility] Guaifenesin (Robitussin) 200 mg PO Q4H PRN PRN Reason: Cough and congestion Last Admin: 10/25/17 09:34 Dose: 200 mg Ciprofloxacin (Cipro 400mg/200ml Dsw) 400 mg in 200 mls @ 133 mls/hr IVPB Q12H [facility] Last Admin: 10/25/17 11:00 Dose: 133 mls/hr Insulin Aspart (Novolog) 0 unit SC ACHS [facility] PRN Reason: Protocol Last Admin: 10/25/17 17:58 Dose: 2 unit Tamsulosin HCl (Flomax) 0.4 mg PO DAILY [facility] Last Admin: 10/25/17 09:34 Dose: 0.4 mg - Labs Labs: 10/24/17 07:01 10/24/17 07:01 PT 13.1 SECONDS (9.7-12.2) H 10/19/17 08:50 INR 1.2 10/19/17 08:50 APTT 34 SECONDS (21-34) 10/19/17 08:50 Assessment and Plan - Assessment and Plan (Free Text) Assessment: HTN s/p Obstructive Uropathy Cardiac arrhythmias
--- NOTE | 2017-10-25 20:58 | CP.PCM.PN ---
Subjective - Date & Time of Evaluation Date of Evaluation: 10/24/17 Time of Evaluation: 11:15 - Subjective Subjective: Patient seen and evaluated S/P Cystoscopy No cardiac events HTN DM 2 S/P Obstructive uropathy Physical Exam - Head Exam Head Exam: NORMAL INSPECTION - Eye Exam Eye Exam: Normal appearance - ENT Exam ENT Exam: Mucous Membranes Moist - Respiratory Exam Respiratory Exam: Clear to Auscultation Bilateral, NORMAL BREATHING PATTERN - Cardiovascular Exam Cardiovascular Exam: REGULAR RHYTHM, +S1, +S2 - GI/Abdominal Exam GI & Abdominal Exam: Normal Bowel Sounds, Soft - Extremities Exam Extremities exam: Positive for: normal inspection Objective - Vital Signs/Intake and Output Vital Signs (last 24 hours): Temp Pulse Resp BP Pulse Ox 97.6 F 77 20 122/65 97 10/25/17 15:16 10/25/17 15:16 10/25/17 15:16 10/25/17 15:16 10/25/17 15:16 Intake and Output: 10/25/17 10/26/17 18:59 06:59 Intake Total 800 Output Total 1000 Balance -200 - Medications Medications: Current Medications Acetaminophen (Tylenol 325mg Tab) 650 mg PO Q6 PRN PRN Reason: Pain, moderate (4-7) Last Admin: 10/24/17 23:40 Dose: 650 mg Albuterol/Ipratropium (Duoneb 3 Mg/0.5 Mg (3 Ml) Ud) 3 ml INH RQ6 [facility] Last Admin: 10/25/17 08:15 Dose: Not Given Bisacodyl (Dulcolax) 10 mg PO DAILY [facility] Last Admin: 10/25/17 09:34 Dose: 10 mg Enoxaparin Sodium (Lovenox) 40 mg SC DAILY [facility] Guaifenesin (Robitussin) 200 mg PO Q4H PRN PRN Reason: Cough and congestion Last Admin: 10/25/17 09:34 Dose: 200 mg Ciprofloxacin (Cipro 400mg/200ml Dsw) 400 mg in 200 mls @ 133 mls/hr IVPB Q12H [facility] Last Admin: 10/25/17 11:00 Dose: 133 mls/hr Insulin Aspart (Novolog) 0 unit SC ACHS [facility] PRN Reason: Protocol Last Admin: 10/25/17 17:58 Dose: 2 unit Tamsulosin HCl (Flomax) 0.4 mg PO DAILY [facility] Last Admin: 10/25/17 09:34 Dose: 0.4 mg - Labs Labs: 10/24/17 07:01 10/24/17 07:01 PT 13.1 SECONDS (9.7-12.2) H 10/19/17 08:50 INR 1.2 10/19/17 08:50 APTT 34 SECONDS (21-34) 10/19/17 08:50 Assessment and Plan - Assessment and Plan (Free Text) Assessment: HTN s/p Obstructive Uropathy Cardiac arrhythmias
[2017-10-26] MEDS: Albuterol-Ipratrop 3 mg / 0.5 (3 ml) UD INH SCH ×4 (01:51→19:29)
[2017-10-26] MEDS: (Novolog) Insulin Aspart, Recombinant 100 u/ml 10 ml vial SC SCH ×4 (08:30→22:10)
[2017-10-26] MEDS: Bisacodyl 5mg EC Tab PO SCH (09:10)
[2017-10-26] MEDS: Ciprofloxacin 400mg/200ml D5W 400 MG/200 ML BAG IVPB SCH ×2 (11:31→21:14)
--- NOTE | 2017-10-26 12:33 | CP.PCM.PN ---
Subjective - Date & Time of Evaluation Date of Evaluation: 10/26/17 Time of Evaluation: 12:33 - Subjective Subjective: Patient seen and examined He has no complaints Objective - Vital Signs/Intake and Output Vital Signs (last 24 hours): Temp Pulse Resp BP Pulse Ox 97.6 F 86 20 123/77 95 10/26/17 07:10 10/26/17 09:00 10/26/17 07:10 10/26/17 07:10 10/26/17 07:10 Intake and Output: 10/26/17 10/26/17 06:59 18:59 Intake Total 800 Output Total 750 Balance 50 - Medications Medications: Current Medications Acetaminophen (Tylenol 325mg Tab) 650 mg PO Q6 PRN PRN Reason: Pain, moderate (4-7) Last Admin: 10/26/17 09:10 Dose: 650 mg Albuterol/Ipratropium (Duoneb 3 Mg/0.5 Mg (3 Ml) Ud) 3 ml INH RQ6 [facility] Last Admin: 10/26/17 08:22 Dose: Not Given Bisacodyl (Dulcolax) 10 mg PO DAILY [facility] Last Admin: 10/26/17 09:10 Dose: 10 mg Enoxaparin Sodium (Lovenox) 40 mg SC DAILY [facility] Guaifenesin (Robitussin) 200 mg PO Q4H PRN PRN Reason: Cough and congestion Last Admin: 10/25/17 09:34 Dose: 200 mg Ciprofloxacin (Cipro 400mg/200ml Dsw) 400 mg in 200 mls @ 133 mls/hr IVPB Q12H [facility] Last Admin: 10/26/17 11:31 Dose: 133 mls/hr Insulin Aspart (Novolog) 0 unit SC ACHS [facility] PRN Reason: Protocol Last Admin: 10/26/17 11:30 Dose: 1 unit Tamsulosin HCl (Flomax) 0.4 mg PO DAILY [facility] Last Admin: 10/26/17 09:09 Dose: 0.4 mg - Labs Labs: 10/24/17 07:01 10/24/17 07:01 PT 13.1 SECONDS (9.7-12.2) H 10/19/17 08:50 INR 1.2 10/19/17 08:50 APTT 34 SECONDS (21-34) 10/19/17 08:50 - Head Exam Head Exam: NORMAL INSPECTION - Eye Exam Eye Exam: Normal appearance - ENT Exam ENT Exam: Mucous Membranes Moist - Respiratory Exam Respiratory Exam: Clear to Ausculation Bilateral - GI/Abdominal Exam GI & Abdominal Exam: Soft, Normal Bowel Sounds - Neurological Exam Neurological Exam: Alert, Oriented x3 - Psychiatric Exam Psychiatric exam: Normal Affect, Normal Mood Assessment and Plan - Assessment and Plan (Free Text) Assessment: KIMBERLY with hydronephrosis - resolved 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
--- NOTE | 2017-10-26 22:44 | CP.PCM.PN ---
Subjective - Date & Time of Evaluation Date of Evaluation: 10/25/17 Time of Evaluation: 09:10 - Subjective Subjective: Patient seen and evaluated No cardiac complaints Comfortable Physical Exam - Head Exam Head Exam: NORMAL INSPECTION - Eye Exam Eye Exam: Normal appearance - ENT Exam ENT Exam: Mucous Membranes Moist - Respiratory Exam Respiratory Exam: Clear to Auscultation Bilateral, NORMAL BREATHING PATTERN - Cardiovascular Exam Cardiovascular Exam: REGULAR RHYTHM, +S1, +S2 - GI/Abdominal Exam GI & Abdominal Exam: Normal Bowel Sounds, Soft - Extremities Exam Extremities exam: Positive for: normal inspection Objective - Vital Signs/Intake and Output Vital Signs (last 24 hours): Temp Pulse Resp BP Pulse Ox 97.4 F L 92 H 20 147/88 100 10/26/17 15:19 10/26/17 15:19 10/26/17 15:19 10/26/17 15:19 10/26/17 15:19 Intake and Output: 10/26/17 10/27/17 18:59 06:59 Intake Total 680 Output Total 300 Balance -300 680 - Medications Medications: Current Medications Acetaminophen (Tylenol 325mg Tab) 650 mg PO Q6 PRN PRN Reason: Pain, moderate (4-7) Last Admin: 10/26/17 09:10 Dose: 650 mg Albuterol/Ipratropium (Duoneb 3 Mg/0.5 Mg (3 Ml) Ud) 3 ml INH RQ6 [facility] Last Admin: 10/26/17 19:29 Dose: Not Given Bisacodyl (Dulcolax) 10 mg PO DAILY [facility] Last Admin: 10/26/17 09:10 Dose: 10 mg Enoxaparin Sodium (Lovenox) 40 mg SC DAILY [facility] Guaifenesin (Robitussin) 200 mg PO Q4H PRN PRN Reason: Cough and congestion Last Admin: 10/25/17 09:34 Dose: 200 mg Ciprofloxacin (Cipro 400mg/200ml Dsw) 400 mg in 200 mls @ 133 mls/hr IVPB Q12H [facility] Last Admin: 10/26/17 21:14 Dose: 133 mls/hr Insulin Aspart (Novolog) 0 unit SC ACHS [facility] PRN Reason: Protocol Last Admin: 10/26/17 22:10 Dose: Not Given Tamsulosin HCl (Flomax) 0.4 mg PO DAILY [facility] Last Admin: 10/26/17 09:09 Dose: 0.4 mg - Labs Labs: 10/24/17 07:01 10/24/17 07:01 PT 13.1 SECONDS (9.7-12.2) H 10/19/17 08:50 INR 1.2 10/19/17 08:50 APTT 34 SECONDS (21-34) 10/19/17 08:50 Assessment and Plan - Assessment and Plan (Free Text) Assessment: HTN s/p Obstructive Uropathy Cardiac arrhythmias
--- NOTE | 2017-10-26 22:45 | CP.PCM.PN ---
Subjective - Date & Time of Evaluation Date of Evaluation: 10/26/17 Time of Evaluation: 09:40 - Subjective Subjective: Patient seen and evaluated No cardiac complaints Comfortable Physical Exam - Head Exam Head Exam: NORMAL INSPECTION - Eye Exam Eye Exam: Normal appearance - ENT Exam ENT Exam: Mucous Membranes Moist - Respiratory Exam Respiratory Exam: Clear to Auscultation Bilateral, NORMAL BREATHING PATTERN - Cardiovascular Exam Cardiovascular Exam: REGULAR RHYTHM, +S1, +S2 - GI/Abdominal Exam GI & Abdominal Exam: Normal Bowel Sounds, Soft - Extremities Exam Extremities exam: Positive for: normal inspection Objective - Vital Signs/Intake and Output Vital Signs (last 24 hours): Temp Pulse Resp BP Pulse Ox 97.4 F L 92 H 20 147/88 100 10/26/17 15:19 10/26/17 15:19 10/26/17 15:19 10/26/17 15:19 10/26/17 15:19 Intake and Output: 10/26/17 10/27/17 18:59 06:59 Intake Total 680 Output Total 300 Balance -300 680 - Medications Medications: Current Medications Acetaminophen (Tylenol 325mg Tab) 650 mg PO Q6 PRN PRN Reason: Pain, moderate (4-7) Last Admin: 10/26/17 09:10 Dose: 650 mg Albuterol/Ipratropium (Duoneb 3 Mg/0.5 Mg (3 Ml) Ud) 3 ml INH RQ6 [facility] Last Admin: 10/26/17 19:29 Dose: Not Given Bisacodyl (Dulcolax) 10 mg PO DAILY [facility] Last Admin: 10/26/17 09:10 Dose: 10 mg Enoxaparin Sodium (Lovenox) 40 mg SC DAILY [facility] Guaifenesin (Robitussin) 200 mg PO Q4H PRN PRN Reason: Cough and congestion Last Admin: 10/25/17 09:34 Dose: 200 mg Ciprofloxacin (Cipro 400mg/200ml Dsw) 400 mg in 200 mls @ 133 mls/hr IVPB Q12H [facility] Last Admin: 10/26/17 21:14 Dose: 133 mls/hr Insulin Aspart (Novolog) 0 unit SC ACHS [facility] PRN Reason: Protocol Last Admin: 10/26/17 22:10 Dose: Not Given Tamsulosin HCl (Flomax) 0.4 mg PO DAILY [facility] Last Admin: 10/26/17 09:09 Dose: 0.4 mg - Labs Labs: 10/24/17 07:01 10/24/17 07:01 PT 13.1 SECONDS (9.7-12.2) H 10/19/17 08:50 INR 1.2 10/19/17 08:50 APTT 34 SECONDS (21-34) 10/19/17 08:50 Assessment and Plan - Assessment and Plan (Free Text) Assessment: HTN s/p Obstructive Uropathy Cardiac arrhythmias
[2017-10-27] MEDS: Albuterol-Ipratrop 3 mg / 0.5 (3 ml) UD INH SCH ×4 (02:31→19:38)
[2017-10-27] MEDS: (Novolog) Insulin Aspart, Recombinant 100 u/ml 10 ml vial SC SCH ×4 (08:16→21:48)
[2017-10-27] MEDS: Bisacodyl 5mg EC Tab PO SCH (10:40)
[2017-10-27] MEDS: Ciprofloxacin 400mg/200ml D5W 400 MG/200 ML BAG IVPB SCH ×2 (10:53→12:09)
[2017-10-27] MEDS: guaiFENesin 200 mg/10 ml Syrup UD PO PRN (10:54)
--- NOTE | 2017-10-27 13:48 | CP.PCM.PN ---
Subjective - Date & Time of Evaluation Date of Evaluation: 10/27/17 Time of Evaluation: 13:48 - Subjective Subjective: Patient seen and examined No events overnight Objective - Vital Signs/Intake and Output Vital Signs (last 24 hours): Temp Pulse Resp BP Pulse Ox 98.1 F 77 20 136/77 97 10/27/17 08:27 10/27/17 11:46 10/27/17 08:27 10/27/17 08:27 10/27/17 08:27 Intake and Output: 10/27/17 10/27/17 06:59 18:59 Intake Total 920 Balance 920 - Medications Medications: Current Medications Acetaminophen (Tylenol 325mg Tab) 650 mg PO Q6 PRN PRN Reason: Pain, moderate (4-7) Last Admin: 10/26/17 09:10 Dose: 650 mg Albuterol/Ipratropium (Duoneb 3 Mg/0.5 Mg (3 Ml) Ud) 3 ml INH RQ6 [facility] Last Admin: 10/27/17 13:36 Dose: Not Given Bisacodyl (Dulcolax) 10 mg PO DAILY [facility] Last Admin: 10/27/17 10:40 Dose: Not Given Cephalexin Monohydrate (Keflex) 500 mg PO Q12 [facility] Enoxaparin Sodium (Lovenox) 40 mg SC DAILY [facility] Guaifenesin (Robitussin) 200 mg PO Q4H PRN PRN Reason: Cough and congestion Last Admin: 10/27/17 10:54 Dose: 200 mg Insulin Aspart (Novolog) 0 unit SC ACHS [facility] PRN Reason: Protocol Last Admin: 10/27/17 13:18 Dose: 1 unit Tamsulosin HCl (Flomax) 0.4 mg PO DAILY [facility] Last Admin: 10/27/17 10:54 Dose: 0.4 mg - Labs Labs: 10/24/17 07:01 10/24/17 07:01 PT 13.1 SECONDS (9.7-12.2) H 10/19/17 08:50 INR 1.2 10/19/17 08:50 APTT 34 SECONDS (21-34) 10/19/17 08:50 - Head Exam Head Exam: NORMAL INSPECTION - Eye Exam Eye Exam: Normal appearance - ENT Exam ENT Exam: Mucous Membranes Moist - Respiratory Exam Respiratory Exam: Clear to Ausculation Bilateral - Cardiovascular Exam Cardiovascular Exam: REGULAR RHYTHM - GI/Abdominal Exam GI & Abdominal Exam: Soft, Normal Bowel Sounds - Extremities Exam Extremities Exam: Pedal Edema Assessment and Plan - Assessment and Plan (Free Text) Assessment: KIMBERLY with hydronephrosis - resolved 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
[2017-10-27 14:47] LABS: BASO # 0.1 K/uL (0.0-0.2); EOS # 0.4 K/uL (0.0-0.7); HEMOGLOBIN 11.1 g/dL (12.0-18.0); LYMPH # 1.6 K/uL (1.0-4.3); LYMPH % 23.3 % (20.0-40.0); MEAN CORPUSCULAR HEMOGLOBIN 26.8 pg (27.0-31.0); MEAN CORPUSCULAR HGB CONC 32.7 g/dL (33.0-37.0); MEAN PLATELET VOLUME 9.8 fL (7.2-11.7); MONO # 0.5 K/uL (0.0-0.8); MONO % 7.2 % (0.0-10.0); NEUT # 4.4 K/uL (1.8-7.0); NEUT % 62.5 % (50.0-75.0); RBC 4.13 Mil/uL (4.40-5.90); RED CELL DISTRIBUTION WIDTH 16.5 % (11.5-14.5)
--- NOTE | 2017-10-27 15:03 | CP.PCM.PN ---
Subjective - Date & Time of Evaluation Date of Evaluation: 10/27/17 Time of Evaluation: 15:02 - Subjective Subjective: Follow up Nephrology Consultation: Assessment: Stable Acute Kidney Injury (N17.9) likely due to bladder outlet obstruction with b/l hydronephrosis: resolved Active smoker Hyponatremia, acidosis, Hyperkalemia: resolved anemia s/p PURP 10/23/17 Hyponatremia Plan renal function close to normal BP controlled continue with flomax urology eval appreciated. cardiology evaluated for pause on tele. stress test and echo done Dose meds/antibiotics for improved GFR. Glycemic control Further work up/management as per primary team pt advised to stop smoking pt stable for d/c from renal perspective, when planned. Thanks for allowing me to participate in care of your patient. Will follow patient with you. Please call if any Qs. d/w team Dr Kieran Espinosa Office: [phone] HPI: Pt is a 72 M without much medical hx but active smoker presented with complaints of unable to urinate for 1 week. he had nocturia prior to that but he denies other symptoms of LUTS he was found to have urine retention and womack catheter drained ~ 2 L urine soon after. ROS: Cardiovascular: No chest pain. Pulmonary: No shortness of breath Gastrointestinal: denies abdominal pain No nausea. No vomiting. making urine, womack was d/c All other negative Physical Examination: General Appearance: Comfortable, in no acute respiratory distress, co-operative . Vitals reviewed and noted as below Head; Atraumatic, normocephalic ENT: no ulcers no thrush. Tongue is midline. Oropharynx: no rash or ulcers. EYES: Pupils are equal, round and reactive to light accommodation. Eye muscles and extraocular movement intact. Sclera is anicteric. Neck; supple no lymphadenopathy, no thyromegaly or bruit Lungs: Normal respiratory rate/effort. Breath sounds bilateral equal and clear Heart: Normal rate. s1s2 normal. No rub or gallop. Extremities: no edema. No varicose veins Neurological: Patient is alert, awake and oriented to person, place and time. No focal deficit. Strength bilateral appropriate and equal Skin: Warm and dry. Normal turgor. No rash. Palpitation: Normal elasticity for age Abdomen: Abdomen is soft. Bowel sounds +. There is no abdominal tenderness, no guarding/rigidity no organomegaly Psych: normal insight and normal affect/mood MSK: no joint tenderness or swelling. Digits and nails normal, no deformity : kidney or bladder not palpable. Labs/imaging reviewed. Past medical history, past surgical history, family history, social history, allergy reviewed and noted as below Family hx: no hx of CKD. Rest non-contributory renao sono repeat: WNL Objective - Vital Signs/Intake and Output Vital Signs (last 24 hours): Temp Pulse Resp BP Pulse Ox 98.1 F 77 20 136/77 97 10/27/17 08:27 10/27/17 11:46 10/27/17 08:27 10/27/17 08:27 10/27/17 08:27 Intake and Output: 10/27/17 10/27/17 06:59 18:59 Intake Total 920 500 Output Total 400 Balance 920 100 - Medications Medications: Current Medications Acetaminophen (Tylenol 325mg Tab) 650 mg PO Q6 PRN PRN Reason: Pain, moderate (4-7) Last Admin: 10/26/17 09:10 Dose: 650 mg Albuterol/Ipratropium (Duoneb 3 Mg/0.5 Mg (3 Ml) Ud) 3 ml INH RQ6 [facility] Last Admin: 10/27/17 13:36 Dose: Not Given Bisacodyl (Dulcolax) 10 mg PO DAILY [facility] Last Admin: 10/27/17 10:40 Dose: Not Given Cephalexin Monohydrate (Keflex) 500 mg PO Q12 [facility] Enoxaparin Sodium (Lovenox) 40 mg SC DAILY [facility] Guaifenesin (Robitussin) 200 mg PO Q4H PRN PRN Reason: Cough and congestion Last Admin: 10/27/17 10:54 Dose: 200 mg Insulin Aspart (Novolog) 0 unit SC ACHS [facility] PRN Reason: Protocol Last Admin: 10/27/17 13:18 Dose: 1 unit Tamsulosin HCl (Flomax) 0.4 mg PO DAILY [facility] Last Admin: 10/27/17 10:54 Dose: 0.4 mg - Labs Labs: 10/27/17 14:34 10/24/17 07:01 PT 13.1 SECONDS (9.7-12.2) H 10/19/17 08:50 INR 1.2 10/19/17 08:50 APTT 34 SECONDS (21-34) 10/19/17 08:50
[2017-10-27 15:18] LABS: BLOOD UREA NITROGEN 21 mg/dL (9-20); CALCIUM 8.1 mg/dl (8.6-10.4); GFR AFRICAN-AMERICAN > 60; GFR NON-AFRICAN AMERICAN > 60
--- NOTE | 2017-10-27 23:15 | CP.PCM.PN ---
Subjective - Date & Time of Evaluation Date of Evaluation: 10/27/17 Time of Evaluation: 10:15 - Subjective Subjective: Patient seen and evaluated Denies chest pain and dyspnea No cardiac events noted Physical Exam - Head Exam Head Exam: NORMAL INSPECTION - Eye Exam Eye Exam: Normal appearance - ENT Exam ENT Exam: Mucous Membranes Moist - Respiratory Exam Respiratory Exam: Clear to Auscultation Bilateral, NORMAL BREATHING PATTERN - Cardiovascular Exam Cardiovascular Exam: REGULAR RHYTHM, +S1, +S2 - GI/Abdominal Exam GI & Abdominal Exam: Normal Bowel Sounds, Soft - Extremities Exam Extremities exam: Positive for: normal inspection Objective - Vital Signs/Intake and Output Vital Signs (last 24 hours): Temp Pulse Resp BP Pulse Ox 98 F 85 20 120/71 96 10/27/17 15:35 10/27/17 16:00 10/27/17 15:35 10/27/17 15:35 10/27/17 15:35 Intake and Output: 10/27/17 10/28/17 18:59 06:59 Intake Total 500 420 Output Total 400 Balance 100 420 - Medications Medications: Current Medications Acetaminophen (Tylenol 325mg Tab) 650 mg PO Q6 PRN PRN Reason: Pain, moderate (4-7) Last Admin: 10/26/17 09:10 Dose: 650 mg Albuterol/Ipratropium (Duoneb 3 Mg/0.5 Mg (3 Ml) Ud) 3 ml INH RQ6 [facility] Last Admin: 10/27/17 19:38 Dose: Not Given Bisacodyl (Dulcolax) 10 mg PO DAILY [facility] Last Admin: 10/27/17 10:40 Dose: Not Given Cephalexin Monohydrate (Keflex) 500 mg PO Q12 [facility] Last Admin: 10/27/17 21:26 Dose: 500 mg Enoxaparin Sodium (Lovenox) 40 mg SC DAILY [facility] Guaifenesin (Robitussin) 200 mg PO Q4H PRN PRN Reason: Cough and congestion Last Admin: 10/27/17 10:54 Dose: 200 mg Insulin Aspart (Novolog) 0 unit SC ACHS [facility] PRN Reason: Protocol Last Admin: 10/27/17 21:48 Dose: Not Given Tamsulosin HCl (Flomax) 0.4 mg PO DAILY [facility] Last Admin: 10/27/17 10:54 Dose: 0.4 mg - Labs Labs: 10/27/17 14:34 10/27/17 14:34 PT 13.1 SECONDS (9.7-12.2) H 10/19/17 08:50 INR 1.2 10/19/17 08:50 APTT 34 SECONDS (21-34) 10/19/17 08:50 Assessment and Plan - Assessment and Plan (Free Text) Assessment: HTN s/p Obstructive Uropathy Cardiac arrhythmias
[2017-10-28] MEDS: Albuterol-Ipratrop 3 mg / 0.5 (3 ml) UD INH SCH ×3 (01:14→13:31)
[2017-10-28] MEDS: (Novolog) Insulin Aspart, Recombinant 100 u/ml 10 ml vial SC SCH ×3 (08:28→17:31)
[2017-10-28] MEDS: Bisacodyl 5mg EC Tab PO SCH (10:52)
--- NOTE | 2017-10-28 13:33 | CP.PCM.PN ---
Subjective - Date & Time of Evaluation Date of Evaluation: 10/28/17 Time of Evaluation: 13:30 Objective - Vital Signs/Intake and Output Vital Signs (last 24 hours): Temp Pulse Resp BP Pulse Ox 98 F 85 20 138/77 94 L 10/28/17 07:00 10/28/17 07:00 10/28/17 07:00 10/28/17 07:00 10/28/17 07:00 Intake and Output: 10/28/17 10/28/17 06:59 18:59 Intake Total 660 Balance 660 - Medications Medications: Current Medications Acetaminophen (Tylenol 325mg Tab) 650 mg PO Q6 PRN PRN Reason: Pain, moderate (4-7) Last Admin: 10/26/17 09:10 Dose: 650 mg Albuterol/Ipratropium (Duoneb 3 Mg/0.5 Mg (3 Ml) Ud) 3 ml INH RQ6 [facility] Last Admin: 10/28/17 08:04 Dose: 3 ml Bisacodyl (Dulcolax) 10 mg PO DAILY [facility] Last Admin: 10/28/17 10:52 Dose: 10 mg Cephalexin Monohydrate (Keflex) 500 mg PO Q12 [facility] Last Admin: 10/28/17 10:52 Dose: 500 mg Enoxaparin Sodium (Lovenox) 40 mg SC DAILY [facility] Guaifenesin (Robitussin) 200 mg PO Q4H PRN PRN Reason: Cough and congestion Last Admin: 10/27/17 10:54 Dose: 200 mg Insulin Aspart (Novolog) 0 unit SC ACHS [facility] PRN Reason: Protocol Last Admin: 10/28/17 12:24 Dose: 2 unit Tamsulosin HCl (Flomax) 0.4 mg PO DAILY [facility] Last Admin: 10/28/17 10:52 Dose: 0.4 mg - Labs Labs: 10/27/17 14:34 10/27/17 14:34 PT 13.1 SECONDS (9.7-12.2) H 10/19/17 08:50 INR 1.2 10/19/17 08:50 APTT 34 SECONDS (21-34) 10/19/17 08:50
--- NOTE | 2017-10-28 15:02 | CP.PCM.PN ---
Subjective - Date & Time of Evaluation Date of Evaluation: 10/28/17 Time of Evaluation: 11:40 - Subjective Subjective: Patient seen today, denies any chest pain, sob, abdominal pain , voiding without any issues No overnight events reported by RN S/P ORALIA Objective - Vital Signs/Intake and Output Vital Signs (last 24 hours): Temp Pulse Resp BP Pulse Ox 98 F 85 20 138/77 94 L 10/28/17 07:00 10/28/17 07:00 10/28/17 07:00 10/28/17 07:00 10/28/17 07:00 Intake and Output: 10/28/17 10/28/17 06:59 18:59 Intake Total 660 Balance 660 - Medications Medications: Current Medications Acetaminophen (Tylenol 325mg Tab) 650 mg PO Q6 PRN PRN Reason: Pain, moderate (4-7) Last Admin: 10/26/17 09:10 Dose: 650 mg Albuterol/Ipratropium (Duoneb 3 Mg/0.5 Mg (3 Ml) Ud) 3 ml INH RQ6 [facility] Last Admin: 10/28/17 13:31 Dose: Not Given Bisacodyl (Dulcolax) 10 mg PO DAILY [facility] Last Admin: 10/28/17 10:52 Dose: 10 mg Cephalexin Monohydrate (Keflex) 500 mg PO Q12 [facility] Last Admin: 10/28/17 10:52 Dose: 500 mg Enoxaparin Sodium (Lovenox) 40 mg SC DAILY [facility] Guaifenesin (Robitussin) 200 mg PO Q4H PRN PRN Reason: Cough and congestion Last Admin: 10/27/17 10:54 Dose: 200 mg Insulin Aspart (Novolog) 0 unit SC ACHS [facility] PRN Reason: Protocol Last Admin: 10/28/17 12:24 Dose: 2 unit Tamsulosin HCl (Flomax) 0.4 mg PO DAILY [facility] Last Admin: 10/28/17 10:52 Dose: 0.4 mg - Labs Labs: 10/27/17 14:34 10/27/17 14:34 PT 13.1 SECONDS (9.7-12.2) H 10/19/17 08:50 INR 1.2 10/19/17 08:50 APTT 34 SECONDS (21-34) 10/19/17 08:50 Assessment and Plan - Assessment and Plan (Free Text) Assessment: A/P 72 yr old male admitted for urinary retention /ARF S/P cystoscopy S/P turp with biopsy BUN/CR. back to normal seen by Gabriela/W Yvette , plan discussed with patient, and cleared for discharge home today after bone scan and f/u with Dr. Smith office in 2 week BONE SCAN - completed - pending result D/W Dr. Lee stable for discharge home today and f/u with Dr. Smith office and Dr. Lee office discharge plan discussed with patient who understands and agrees with plan
[2017-10-28 15:45] VITALS: BP 129/73; RESP 18; TEMP 97.9; O2SAT 95
--- NOTE | 2017-10-28 17:22 | NM ---
PROCEDURE: Whole Body Bone Scan HISTORY: Prostate cancer COMPARISON: None available. TECHNIQUE: Following administration of 23.1 miCu of Tc MDP multiplanar whole body images were obtained. FINDINGS: Evidence for bony metastatic disease: None. Degenerative uptake: Medial right tibial plateau Physiologic uptake: Normal physiologic activity in the kidneys. Other findings: None. IMPRESSION: No evidence of bony metastatic disease.
[2017-10-28 19:00] VITALS: PULSE 75
--- NOTE | 2017-10-28 19:21 | CP.PCM.PN ---
Subjective - Date & Time of Evaluation Date of Evaluation: 10/28/17 Time of Evaluation: 11:00 - Subjective Subjective: Follow up Nephrology Consultation: Assessment: Stable Acute Kidney Injury (N17.9) likely due to bladder outlet obstruction with b/l hydronephrosis: resolved Active smoker Hyponatremia, acidosis, Hyperkalemia: resolved anemia s/p PURP 10/23/17 Hyponatremia CA prostate on biopsy Plan renal function close to normal BP controlled continue with flomax urology eval appreciated. cardiology evaluated for pause on tele. stress test and echo done Dose meds/antibiotics for improved GFR. Glycemic control Further work up/management as per primary team pt advised to stop smoking pt stable for d/c from renal perspective, when planned. Thanks for allowing me to participate in care of your patient. Will follow patient with you. Please call if any Qs. d/w team Dr Kieran Espinosa Office: [phone] HPI: Pt is a 72 M without much medical hx but active smoker presented with complaints of unable to urinate for 1 week. he had nocturia prior to that but he denies other symptoms of LUTS he was found to have urine retention and womack catheter drained ~ 2 L urine soon after. ROS: Cardiovascular: No chest pain. Pulmonary: No shortness of breath Gastrointestinal: denies abdominal pain No nausea. No vomiting. making urine, womack was d/c All other negative Physical Examination: General Appearance: Comfortable, in no acute respiratory distress, co-operative . Vitals reviewed and noted as below Head; Atraumatic, normocephalic ENT: no ulcers no thrush. Tongue is midline. Oropharynx: no rash or ulcers. EYES: Pupils are equal, round and reactive to light accommodation. Eye muscles and extraocular movement intact. Sclera is anicteric. Neck; supple no lymphadenopathy, no thyromegaly or bruit Lungs: Normal respiratory rate/effort. Breath sounds bilateral equal and clear Heart: Normal rate. s1s2 normal. No rub or gallop. Extremities: no edema. No varicose veins Neurological: Patient is alert, awake and oriented to person, place and time. No focal deficit. Strength bilateral appropriate and equal Skin: Warm and dry. Normal turgor. No rash. Palpitation: Normal elasticity for age Abdomen: Abdomen is soft. Bowel sounds +. There is no abdominal tenderness, no guarding/rigidity no organomegaly Psych: normal insight and normal affect/mood MSK: no joint tenderness or swelling. Digits and nails normal, no deformity : kidney or bladder not palpable. Labs/imaging reviewed. Past medical history, past surgical history, family history, social history, allergy reviewed and noted as below Family hx: no hx of CKD. Rest non-contributory renao sono repeat: WNL Objective - Vital Signs/Intake and Output Vital Signs (last 24 hours): Temp Pulse Resp BP Pulse Ox 97.9 F 75 18 129/73 95 10/28/17 15:44 10/28/17 16:00 10/28/17 15:44 10/28/17 15:44 10/28/17 15:44 Intake and Output: 10/28/17 10/29/17 18:59 06:59 Intake Total 250 Balance 250 - Labs Labs: 10/27/17 14:34 10/27/17 14:34 PT 13.1 SECONDS (9.7-12.2) H 10/19/17 08:50 INR 1.2 10/19/17 08:50 APTT 34 SECONDS (21-34) 10/19/17 08:50
--- NOTE | 2017-11-03 23:42 | CARD ---
APPROVED REPORT EKG Measurement Heart [id number] [id number] <Conclusion> Sinus rhythm with premature atrial complexes Right bundle branch block Abnormal ECG
--- NOTE | 2017-11-07 00:36 | CP.PCM.DIS ---
Provider - Provider Date of Admission: 10/14/17 15:00 Attending physician: Milan Lee MD Time Spent in preparation of Discharge (in minutes): 25 Diagnosis - Discharge Diagnosis (1) Prostate CA Status: Acute Hospital Course - Lab Results Lab Results: Most Recent Lab Values WBC 7.0 K/uL (4.8-10.8) 10/27/17 14:34 RBC 4.13 Mil/uL (4.40-5.90) L 10/27/17 14:34 Hgb 11.1 g/dL (12.0-18.0) L 10/27/17 14:34 Hct 33.9 % (35.0-51.0) L 10/27/17 14:34 MCV 82.0 fL (80.0-94.0) 10/27/17 14:34 MCH 26.8 pg (27.0-31.0) L 10/27/17 14:34 MCHC 32.7 g/dL (33.0-37.0) L 10/27/17 14:34 RDW 16.5 % (11.5-14.5) H 10/27/17 14:34 Plt Count 268 K/uL (130-400) 10/27/17 14:34 MPV 9.8 fL (7.2-11.7) 10/27/17 14:34 Neut % (Auto) 62.5 % (50.0-75.0) 10/27/17 14:34 Lymph % (Auto) 23.3 % (20.0-40.0) 10/27/17 14:34 Hawkins % (Auto) 7.2 % (0.0-10.0) 10/27/17 14:34 Eos % (Auto) 6.0 % (0.0-4.0) H 10/27/17 14:34 Baso % (Auto) 1.0 % (0.0-2.0) 10/27/17 14:34 Neut # 4.4 K/uL (1.8-7.0) 10/27/17 14:34 Lymph # 1.6 K/uL (1.0-4.3) 10/27/17 14:34 Hawkins # 0.5 K/uL (0.0-0.8) 10/27/17 14:34 Eos # 0.4 K/uL (0.0-0.7) 10/27/17 14:34 Baso # 0.1 K/uL (0.0-0.2) 10/27/17 14:34 Neutrophils % (Manual) 80 % (50-75) H 10/14/17 13:15 Lymphocytes % (Manual) 10 % (20-40) L 10/14/17 13:15 Monocytes % (Manual) 8 % (0-10) 10/14/17 13:15 Basophils % (Manual) 2 % (0-2) 10/14/17 13:15 Platelet Estimate Normal (NORMAL) 10/14/17 13:15 Hypochromasia (manual) Slight 10/14/17 13:15 Poikilocytosis (manual Slight 10/14/17 13:15 Anisocytosis (manual) Slight 10/14/17 13:15 PT 13.1 SECONDS (9.7-12.2) H 10/19/17 08:50 INR 1.2 10/19/17 08:50 APTT 34 SECONDS (21-34) 10/19/17 08:50 Sodium 132 mmol/L (132-148) 10/27/17 14:34 Potassium 4.2 mmol/L (3.6-5.2) 10/27/17 14:34 Chloride 95 mmol/L (98-107) L 10/27/17 14:34 Carbon Dioxide 32 mmol/L (22-30) H 10/27/17 14:34 Anion Gap 10 (10-20) 10/27/17 14:34 BUN 21 mg/dL (9-20) H 10/27/17 14:34 Creatinine 1.1 mg/dL (0.8-1.5) 10/27/17 14:34 Est GFR ( Amer) > 60 10/27/17 14:34 Est GFR (Non-Af Amer) > 60 10/27/17 14:34 POC Glucose (mg/dL) 125 mg/dL (65-110) H 10/28/17 17:30 Random Glucose 168 mg/dL (75-110) H 10/27/17 14:34 Calcium 8.1 mg/dl (8.6-10.4) L 10/27/17 14:34 Phosphorus 4.8 mg/dL (2.5-4.5) H 10/15/17 08:17 Magnesium 2.5 mg/dL (1.6-2.3) H 10/15/17 08:17 Total Bilirubin 1.1 mg/dL (0.2-1.3) 10/14/17 13:15 AST 58 U/L (17-59) 10/14/17 13:15 ALT 49 U/L (21-72) 10/14/17 13:15 Alkaline Phosphatase 80 U/L (38-126) 10/14/17 13:15 Troponin I < 0.0120 ng/mL (0.00-0.120) 10/19/17 21:00 Total Protein 8.0 g/dL (6.3-8.3) 10/14/17 13:15 Albumin 3.8 g/dL (3.5-5.0) 10/14/17 13:15 Globulin 4.1 gm/dL (2.2-3.9) H 10/14/17 13:15 Albumin/Globulin Ratio 0.9 (1.0-2.1) L 10/14/17 13:15 Lipase 48 U/L (23-300) 10/14/17 13:15 Prostate Specific Ag 13.2 ng/mL (0.00-4.0) H 10/17/17 13:46 TSH 3rd Generation 1.54 mIU/L (0.46-4.68) 10/19/17 21:00 Urine Color Gini (YELLOW) 10/14/17 13:32 Urine Clarity Turbid (Clear) 10/14/17 13:32 Urine pH 5.0 (5.0-8.0) 10/14/17 13:32 Ur Specific [place] 1.013 (1.003-1.030) 10/14/17 13:32 Urine Protein 1+ mg/dL (NEGATIVE) H 10/14/17 13:32 Urine Glucose (UA) Normal mg/dL (Normal) 10/14/17 13:32 Urine Ketones Negative mg/dL (NEGATIVE) 10/14/17 13:32 Urine Blood 3+ (NEGATIVE) H 10/14/17 13:32 Urine Nitrate Negative (NEGATIVE) 10/14/17 13:32 Urine Bilirubin Negative (NEGATIVE) 10/14/17 13:32 Urine Urobilinogen Normal mg/dL (0.2-1.0) 10/14/17 13:32 Ur Leukocyte Esterase 2+ Kylie/uL (Negative) H 10/14/17 13:32 Urine WBC (Auto) 907 /hpf (0-5) H 10/14/17 13:32 Urine RBC (Auto) 287 /hpf (0-3) H 10/14/17 13:32 Ur Squamous Epith Cells 11 /hpf (0-5) H 10/14/17 13:32 Urine Bacteria Few (<OCC) H 10/14/17 13:32 Hyaline Casts 6-10 /lpf (0-2) H 10/14/17 13:32 - Hospital Course Hospital Course: 72-year-old male who was initially admitted for acute renal failure, bilateral hydronephrosis and was found to have obstructive uropathy. Patient underwent cystoscopy and eventually turned with the biopsy which revealed prostate CA. Patient's kidney function normalized and patient underwent bone scan prior to discharge for staging of the disease. Patient is to follow-up with his primary care physician and his urologist as outpatient. Discharge Exam - Head Exam Head Exam: NORMAL INSPECTION - Eye Exam Eye Exam: Normal appearance - ENT Exam ENT Exam: Mucous Membranes Moist - Respiratory Exam Respiratory Exam: Clear to PA & Lateral - Cardiovascular Exam Cardiovascular Exam: REGULAR RHYTHM, +S1, +S2 - GI/Abdominal Exam GI & Abdominal Exam: Normal Bowel Sounds - Extremities Exam Extremities exam: normal inspection - Neurological Exam Neurological exam: Alert, Oriented x3 - Psychiatric Exam Psychiatric exam: Normal Affect, Normal Mood Discharge Plan - Discharge Medications Prescriptions: Bicalutamide [Casodex] 50 mg PO DAILY #30 tab Cephalexin [Keflex] 500 mg PO Q12 #10 cap Albuterol HFA [Ventolin HFA 90 mcg/actuation (8 g)] 0.09 mg IH Q6 PRN #1 puff PRN Reason: Wheezing - Follow Up Plan Condition: STABLE Disposition: HOME/ ROUTINE Instructions: Cephalexin (By mouth), Albuterol (By breathing), Bicalutamide ( By mouth), Acute Kidney Injury (DC), Cystoscopy (DC), Transurethral Prostatectomy (DC), Heart Healthy Diet (DC) Additional Instructions: please follow up with Dr. Lee office in 1 week Please follow up with Dr. Crawford office in 2 week - follow up visit ( [address] - wed) call and make appointment Continue medication as per med. rec. Referrals: Milan Lee MD [Staff Provider] - Ryan Crawford MD [Staff Provider] -
== END 2017-10-28 19:05 | disposition home or self-care (01) | DRG 713 ==
LOC: C.ER 12:01 → C.9E 15:00 → C.6T 17:52
PROVIDERS: ADMIT Internal Medicine Critical Care Medicine; ATTEND Internal Medicine Critical Care Medicine
PROC: 0T9B80Z Drainage of Bladder with Drainage Device, Via Natural or Artificial Opening Endoscopic (ICD-10-PCS; 2017-10-22)
PROC: 0VT08ZZ Resection of Prostate, Via Natural or Artificial Opening Endoscopic (ICD-10-PCS; principal; 2017-10-24)
DX: C61 Malignant neoplasm of prostate (principal); N17.9 Acute kidney failure, unspecified; N32.0 Bladder-neck obstruction; E87.2 Acidosis; E87.5 Hyperkalemia; E87.1 Hypo-osmolality and hyponatremia; N13.30 Unspecified hydronephrosis; D64.9 Anemia, unspecified; E10.9 Type 1 diabetes mellitus without complications; R33.8 Other retention of urine; N40.1 Benign prostatic hyperplasia with lower urinary tract symptoms; I10 Essential (primary) hypertension; J44.9 Chronic obstructive pulmonary disease, unspecified; I45.10 Unspecified right bundle-branch block; E78.5 Hyperlipidemia, unspecified; F17.210 Nicotine dependence, cigarettes, uncomplicated; Z79.4 Long term (current) use of insulin

== ENCOUNTER 2018-07-15 13:55 | Emergency (ER) | payer MEDICARE ==
[2018-07-15 14:04] VITALS: TEMP 98.1
--- NOTE | 2018-07-15 14:26 | C.PDOC ---
Time Seen by Provider: 07/15/18 14:20 Chief Complaint (Nursing): Weakness/Neurological Deficit Past Medical History Vital Signs: Last Vital Signs Temp 98.1 F 07/15/18 14:03 Pulse 78 07/15/18 14:03 Resp 18 07/15/18 14:03 BP 133/76 07/15/18 14:03 Pulse Ox 92 L 07/15/18 14:03 - Medical History PMH: COPD, HTN - [facility] Procedures DRAINAGE OF BLADDER WITH DRAINAGE DEVICE, ENDO (10/14/17) RESECTION OF PROSTATE, ENDO (10/14/17) - Social History Hx Alcohol Use: Yes (social drinker) Hx Substance Use: No - Immunization History Hx Tetanus Toxoid Vaccination: No Hx Influenza Vaccination: Yes Hx Pneumococcal Vaccination: Yes ED Course And Treatment O2 Sat by Pulse Oximetry: 92 Disposition - Disposition
--- NOTE | 2018-07-15 14:50 | C.PDOC ---
History Of Present Illness 73-YEAR-OLD MALE, PRESENTS TO THE EMERGENCY DEPARTMENT WITH COMPLAINTS OF INCREASING DIFFICULTY WITH WALKING, PROGRESSIVELY WORSENING FOR THE PAST SEVERAL MONTHS. PT WALKING SHORT DISTANCES, FEELS LIKE LEGS ARE UNSTEADY, +REQUEST ASS ISTANCE TO SIT AND STAND. PT FEELS LIKE HE WILL FALL. 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 NEG Time Seen by Provider: 07/15/18 14:20 Chief Complaint (Nursing): Weakness/Neurological Deficit History Per: Patient Current Symptoms Are (Timing): Still Present Past Medical History Reviewed: Historical Data, Nursing Documentation, Vital Signs Vital Signs: Last Vital Signs Temp 98.1 F 07/15/18 14:03 Pulse 78 07/15/18 14:03 Resp 18 07/15/18 14:03 BP 133/76 07/15/18 14:03 Pulse Ox 92 L 07/15/18 14:03 - Medical History PMH: COPD, HTN - [facility] Procedures DRAINAGE OF BLADDER WITH DRAINAGE DEVICE, ENDO (10/14/17) RESECTION OF PROSTATE, ENDO (10/14/17) Family History: States: No Known Family Hx - Social History Hx Alcohol Use: Yes (social drinker) Hx Substance Use: No - Immunization History Hx Tetanus Toxoid Vaccination: No Hx Influenza Vaccination: Yes Hx Pneumococcal Vaccination: Yes Review Of Systems Constitutional: Negative for: Fever, Chills Cardiovascular: Negative for: Chest Pain, Palpitations, Edema, Light Headedness Respiratory: Negative for: Shortness of Breath Gastrointestinal: Negative for: Nausea, Vomiting Musculoskeletal: Positive for: Leg Pain (+WEAKNESS) Neurological: Negative for: Numbness, Altered Mental Status, Headache, Dizziness Physical Exam - Physical Exam Appears: Non-toxic, No Acute Distress Skin: Warm, Dry, No Rash Head: Atraumatic, Normacephalic Eye(s): bilateral: Normal Inspection Oral Mucosa: Moist Lips: Normal Appearing Neck: Normal ROM Chest: Symmetrical Cardiovascular: Rhythm Regular, No Murmur Respiratory: Normal Breath Sounds, No Accessory Muscle Use Gastrointestinal/Abdominal: Soft, No Tenderness Extremity: No Pedal Edema, No Deformity, No Swelling Neurological/Psych: Oriented x3, Normal Speech, Romberg (POSITIVE), Other (No focal motor deficits) Gait: With Assistance (STEADY) ED Course And Treatment - Laboratory Results Result Diagrams: 07/15/18 16:20 07/15/18 16:20 ECG: Interpreted By Me ECG Rhythm: 1st Degree HB, R BBB ECG Interpretation: Abnormal Rate From EC O2 Sat by Pulse Oximetry: 92 - Radiology CXR: Interpreted by Me CXR Interpretation: Yes: No Acute Disease Progress - Re-Evaluation Re-evaluation Note: 07/15/18 16:42 d/w dr lee CF PMD WILL ADMIT - Data Reviewed Data Reviewed: Lab, Diagnostic imaging, EKG, Old records Disposition Counseled Patient/Family Regarding: Studies Performed, Diagnosis - Disposition Disposition: HOSPITALIZED Disposition Time: 16:43 Condition: STABLE - Clinical Impression Clinical Impression: Gait disorder, UTI (urinary tract infection) - Scribe Statement The provider has reviewed the documentation as recorded by the Scribe (Stephen Collins) Provider Attestation: All medical record entries made by the Scribe were at my direction and personally dictated by me. I have reviewed the chart and agree that the record accurately reflects my personal performance of the history, physical exam, medical decision making, and the department course for this patient. I have also personally directed, reviewed, and agree with the discharge instructions and d isposition. Decision To Admit - Pt Status Changed To: Hospital Disposition Of: Observation - . Bed Request Type: Regular Admitting Physician: Milan Lee Patient Diagnosis: Gait disorder, UTI (urinary tract infection)
[2018-07-15 15:22] LABS: SQUAMOUS EPITHIAL 2 /hpf (0-5); URINE BACTERIA OCC (<OCC); URINE BILIRUBIN NEGATIVE (NEGATIVE); URINE BLOOD 1+ (NEGATIVE); URINE CLARITY Clear (Clear); URINE COLOR Yellow (YELLOW); URINE GLUCOSE (UA) 1+ mg/dL (Normal); URINE HYALINE CAST 0-2 /lpf (0-2); URINE LEUKOCYTE ESTERASE 2+ Leu/uL (Negative); URINE PROTEIN 2+ mg/dL (NEGATIVE)
--- NOTE | 2018-07-15 15:54 | CT ---
Date of service: 07/15/2018 PROCEDURE: CT HEAD WITHOUT CONTRAST. HISTORY: DIFF WALKING COMPARISON: None available. TECHNIQUE: Axial computed tomography images were obtained through the head/brain without intravenous contrast. Radiation dose: Total exam DLP = 1067.37 mGy-cm. This CT exam was performed using one or more of the following dose reduction techniques: Automated exposure control, adjustment of the mA and/or kV according to patient size, and/or use of iterative reconstruction technique. FINDINGS: HEMORRHAGE: No intracranial hemorrhage. BRAIN: Diffuse atrophy with prominence of the ventricles and sulci noted. No mass effect or edema. Dense intracranial atherosclerosis. Probable mild right subdural hygroma. 3 mm right to left midline shift. Scattered periventricular and subcortical white matter hypodensities, which are nonspecific, but often seen with chronic microvascular ischemic disease. Please note that MRI with diffusion imaging is more sensitive in the detection of acute ischemic event. VENTRICLES: No hydrocephalus. CALVARIUM: Unremarkable. PARANASAL SINUSES: Unremarkable as visualized. No significant inflammatory changes. MASTOID AIR CELLS: Unremarkable as visualized. No inflammatory changes. OTHER FINDINGS: Partial opacification of the right external auditory canal, likely cerumen. IMPRESSION: Probable mild right subdural hygroma. 3 mm right to left midline shift. Nonspecific white matter changes. Generalized atrophy.
--- NOTE | 2018-07-15 16:04 | RAD ---
HISTORY: SOB COMPARISON: Chest x-ray performed 10/18/17 TECHNIQUE: Chest PA and lateral FINDINGS: LUNGS: No focal consolidation. Please note that chest x-ray has limited sensitivity for the detection of pulmonary masses. PLEURA: No significant pleural effusion identified. No definite pneumothorax . CARDIOVASCULAR: Cardiomegaly. OSSEOUS STRUCTURES: Degenerative changes. Kyphosis. VISUALIZED UPPER ABDOMEN: Unremarkable. OTHER FINDINGS: None. IMPRESSION: Cardiomegaly.
[2018-07-15 16:25] LABS: BASO % 0.2 % (0.0-2.0); EOS # 0.3 K/uL (0.0-0.7); EOS % 3.3 % (0.0-4.0); HEMOGLOBIN 11.6 g/dL (12.0-18.0); LYMPH # 2.1 K/uL (1.0-4.3); LYMPH % 27.7 % (20.0-40.0); MEAN CORPUSCULAR HEMOGLOBIN 26.3 pg (27.0-31.0); MEAN CORPUSCULAR HGB CONC 33.3 g/dL (33.0-37.0); MONO # 0.6 K/uL (0.0-0.8); MONO % 7.8 % (0.0-10.0); NEUT # 4.6 K/uL (1.8-7.0); NRBC % 0.1 % (0.0-2.0); RBC 4.39 Mil/uL (4.40-5.90); RED CELL DISTRIBUTION WIDTH 16.2 % (11.5-14.5); WHITE BLOOD COUNT 7.6 K/uL (4.8-10.8)
[2018-07-15 16:36] LABS: VENOUS BLOOD GAS BASE EXCESS 2.7 mmol/L (0.0-2.0); VENOUS BLOOD GAS PCO2 44 mmHg (40-60); VENOUS BLOOD GAS PO2 52 mm/Hg (30-55); VENOUS BLOOD PH 7.41 (7.32-7.43)
[2018-07-15 16:38] LABS: ALBUMIN 3.9 g/dL (3.5-5.0); ALT/SGPT 27 U/L (21-72); AST/SGOT 26 U/L (17-59); BLOOD UREA NITROGEN 16 mg/dL (9-20); CALCIUM 8.8 mg/dl (8.6-10.4); GFR NON-AFRICAN AMERICAN > 60
[2018-07-15 17:17] VITALS: BP 148/70; PULSE 74; RESP 20
[2018-07-15 18:03] VITALS: O2SAT 92
--- NOTE | 2018-07-16 23:25 | CARD ---
APPROVED REPORT Date of service: 07/15/2018 EKG Measurement Heart [id number] <Conclusion> Sinus rhythm with marked sinus arrhythmia with 1st degree AV block Left axis deviation Right bundle branch block Abnormal ECG
== END 2018-07-15 18:52 | disposition left against medical advice (07) ==
LOC: C.ER 13:55 → C.9E 16:48 → UNDOADMOB 16:48 → C.9E 18:12 → C.ER 18:52
DX: R26.89 Other abnormalities of gait and mobility (principal); N39.0 Urinary tract infection, site not specified
CPT/HCPCS: 70450; 71046; 80053; 81001; 82803; 82948; 85025; 87086; 87181; 93005; 96365; 99285; J0696